=== PATIENT | male | born 1940 | race Caucasian/White ===

== ENCOUNTER → 2017-01-23 | Outpatient (CLI) | payer MEDICARE ==
--- NOTE | 2017-01-23 19:33 | CT ---
EXAMINATION TYPE: CT lumbar spine wo con DATE OF EXAM: 01/23/2017 7:07 PM COMPARISON: NONE HISTORY: Lower back pain, hx of fusion. CT DLP: 2454.5 mGycm Automated exposure control for dose reduction was used. Unenhanced CT of the lumbar spine was performed. Bone and soft tissue window settings are submitted as well as coronal and sagittal reconstructions. The lumbar vertebra have normal alignment. There is slight loss of height of the lumbar vertebral bod ies of 5-10%. There is osteosclerosis from L2 to L5. There is disc prosthesis at L4-5. There is narro wing of disc spaces throughout the lumbar spine. There is posterior rods and screws fusing L4 and L5 vertebral bodies. Abdominal aorta is atheromatous. There is no lumbar paraspinal mass. There is left- sided L4 laminectomy. There is mild relative spinal stenosis at L2-3. There is mild relative spinal s tenosis at L3-4. There is metal artifact in the spinal canal is not well evaluated at L4-5. The sacro iliac joints appear intact. I see no focal bone destruction. IMPRESSION: Previous surgery. Atherosclerotic vascular disease. Spondylotic changes mainly from L2 to S1. Posterior fusion surgery. Mild relative spinal stenosis is present at L2-3 and L3-4. No definite acute fracture seen. There is some relative lucency on the left side of the L3 vertebral body that is probably related to degenerative phenomenon. There is noted fu siform aneurysm of the abdominal aorta that measures up to 3.6 cm.
== END | disposition home or self-care (01) ==
LOC: RADCTMAIN 18:52
PROVIDERS: ATTEND Internal Medicine
DX: M48.06 Spinal stenosis, lumbar region (principal); M47.27 Other spondylosis with radiculopathy, lumbosacral region; Z98.1 Arthrodesis status
CPT/HCPCS: 72131

== ENCOUNTER → 2017-09-09 | Outpatient (CLI) | payer MEDICARE ==
--- NOTE | 2017-09-09 10:20 | FL ---
EXAMINATION TYPE: FL sniff test without CXR DATE OF EXAM: 09/09/2017 COMPARISON: NONE HISTORY: Diaphragmatic paralysis TECHNIQUE: Fluoroscopy. FINDINGS: There is normal paradoxical movement upon inspiration and respiration bilaterally however t here is reduced movement of the left hemidiaphragm. IMPRESSION: As Above.
== END | disposition home or self-care (01) ==
LOC: RADFLMAIN 09:56
PROVIDERS: ATTEND Internal Medicine
DX: J98.6 Disorders of diaphragm (principal)
CPT/HCPCS: 76000

== ENCOUNTER 2018-04-08 10:00 | Emergency (ER) | payer MEDICARE ==
[2018-04-08] MEDS ORDERED: NITROGLYCERIN SL TABS 0.4 MG TAB SUBLINGUAL STA ×2 (10:15→12:08)
[2018-04-08] MEDS ORDERED: fentaNYL (PF) 50 MCG/ML 2 ML AMP IV STA ×2 (10:16→12:42)
--- NOTE | 2018-04-08 10:21 | ED ---
Chest Pain HPI - General Chief Complaint: Chest Pain Stated Complaint: Chest pain Time Seen by Provider: 04/08/18 10:08 Source: patient, family, RN notes reviewed Mode of arrival: wheelchair Limitations: no limitations - History of Present Illness Initial Comments: This is a 78-year-old male with a history of chronic atrial fibrillation heart disease who presents with complaints of sharp and tight chest pain it radiates to his back. He points to his lower chest and epigastric area. He states this started about 1 hour prior to admission with some nausea. He states is 8/10 severity. He denies any fevers chills sweats shortness of breath. No focal weakness. He does state that he is scheduled to have a herniorrhaphy done this month. He is not believe this is part of anything is having today. MD Complaint: chest pain - Related Data Home Medications Medication Instructions Recorded Confirmed Allopurinol 300 mg PO HS 04/05/14 04/08/18 Atorvastatin [Lipitor] 40 mg PO HS 04/05/14 04/08/18 Carvedilol [Coreg] 25 mg PO AC-BID 04/05/14 04/08/18 Clopidogrel [Plavix] 75 mg PO DAILY 04/05/14 04/08/18 Colchicine [Colcrys] 1 tab PO DIRECTED PRN 04/05/14 04/08/18 Doxazosin [Cardura] 2 tab PO HS 04/05/14 04/08/18 Furosemide [Lasix] 20 mg PO MOWEFR 04/05/14 04/08/18 Magnesium Oxide 400 mg PO BID-W/MEALS 04/05/14 04/08/18 clonazePAM [KlonoPIN] 1 mg PO 04/05/14 04/08/18 Warfarin [Coumadin] 7.5 mg PO SUMOWEFRSA 04/28/14 04/08/18 Albuterol Sulfate [Proair Hfa] 1 - 2 puff INHALATION RT-Q6H PRN 04/08/18 Losartan Potassium 50 mg PO HS 04/08/18 04/08/18 Warfarin [Coumadin] 5 mg PO TUTH 04/08/18 04/08/18 Allergies Allergy/AdvReac Type Severity Reaction Status Date / Time No Known Allergies Allergy Verified 04/08/18 11:32 Review of Systems ROS Statement: Those systems with pertinent positive or pertinent negative responses have been documented in the HPI. ROS Other: All systems not noted in ROS Statement are negative. EKG Findings - EKG Results: EKG: interpreted by [facility] (DL comparison at this time is one dated 03/02/08 which at that time demonstrated no pacer.) Past Medical History Past Medical History: Cancer, GERD/Reflux, Hyperlipidemia, Hypertension, Myocardial Infarction ([place]), Skin Disorder, Sleep Apnea/CPAP/BIPAP Additional Past Medical History / Comment(s): Skin CA 2014 removal, Last Myocardial Infarction Date:: History of Any Multi-Drug Resistant Organisms: MRSA Date of last positivie culture/infection: 2000 MDRO Source:: Right elbow Past Surgical History: Cardiac Ablation, Heart Catheterization With Stent Past Anesthesia/Blood Transfusion Reactions: No Reported Reaction Date of Last Stent Placement:: 2005 Type of Cardiac Device: Permanent Pacemaker Device Placement Date:: march 2008 Past Psychological History: No Psychological Hx Reported Smoking Status: Never smoker Past Alcohol Use History: None Reported Past Drug Use History: None Reported General Exam - General Exam Comments Initial Comments: This a well-developed well-nourished awake alert oriented 3 male Limitations: no limitations General appearance: alert, anxious Head exam: Present: atraumatic, normocephalic, normal inspection Eye exam: Present: normal appearance, PERRL, EOMI. Absent: scleral icterus, conjunctival injection, periorbital swelling ENT exam: Present: normal exam, mucous membranes moist Neck exam: Present: normal inspection. Absent: tenderness, meningismus, lymphadenopathy Respiratory exam: Present: normal lung sounds bilaterally, chest wall tenderness (Tenderness palpation on the posterior chest wall the mid paraspinous muscles no spinous process tenderness. No step-off or crepitation) . Absent: respiratory distress, wheezes, rales, rhonchi, stridor Cardiovascular Exam: Present: regular rate, normal rhythm, normal heart sounds. Absent: systolic murmur, diastolic murmur, rubs, gallop, clicks GI/Abdominal exam: Present: soft, tenderness (Mild tenderness palpation of the epigastrium), normal bowel sounds. Absent: distended, guarding, rebound, rigid , bruit, pulsatile mass Extremities exam: Present: normal inspection, full ROM, normal capillary refill. Absent: tenderness, pedal edema, joint swelling, calf tenderness Back exam: Present: normal inspection Neurological exam: Present: alert, oriented X3, CN II-XII intact Psychiatric exam: Present: normal affect, normal mood Skin exam: Present: warm, dry, intact, normal color. Absent: rash Course Vital Signs 04/08/18 04/08/18 04/08/18 10:04 10:25 10:33 Temperature 97.4 F L Pulse Rate 65 64 Pulse Rate [ 72 [employer] ] Respiratory 20 20 Rate Blood Pressure 136/69 155/70 O2 Sat by Pulse 93 L 97 Oximetry 04/08/18 04/08/18 04/08/18 10:39 10:46 10:50 Temperature Pulse Rate 61 64 62 Pulse Rate [ [employer] ] Respiratory 22 20 16 Rate Blood Pressure 151/72 112/59 98/52 O2 Sat by Pulse 97 94 L 93 L Oximetry 04/08/18 04/08/18 12:08 13:01 Temperature 97.1 F L Pulse Rate 75 64 Pulse Rate [ [employer] ] Respiratory 18 18 Rate Blood Pressure 160/94 160/83 O2 Sat by Pulse 99 99 Oximetry - Reevaluation(s) Reevaluation #1: 04/08/18 13:35 Patient initially get some relief from pain but is unclear whether was nitroglycerin or fentanyl helped pain but did recur shortly thereafter. Reevaluation #2: 04/08/18 13:36 I did discuss the x-ray findings and CAT scan findings with the patient and his . Reevaluation #3: 04/08/18 13:36 I did discuss case with Dr. Dong at [facility] in [place] he is agreed to accept the patient in transfer they will send a helicopter to retrieve the patient. Chest Pain MDM - MDM I did review the imaging and report discuss the case with the radiologist. There is evidence of a dissecting aorta type a extending from the aortic root to the upper abdominal aorta it terminates at the level of the celiac axis and superior mesenteric artery. Please see the complete report the patient will be transferred by helicopter to [facility]. Patient is on Coumadin he will be given IV vitamin K. Critical Care Time Critical Care Time: Yes Critical Care Time: 39 minutes of critical care time which includes initial presentation with history physical labs x-rays multiple reevaluation the patient. Discussion with the receiving facility and physician. Discussed with the patient and his regarding the findings discussed with the helicopter crew and documentation of the above. I also did discuss the case with Dr. Infante. Disposition Clinical Impression: Aortic dissection, Atypical chest pain Disposition: OTHER INSTITUTION NOT DEFINED Condition: Serious Is patient prescribed a controlled substance at d/c from ED?: No Referrals: Mu Infante MD [Primary Care Provider] - 1-2 days - Out of Hospital Transfer - Req. Specs Out of Hospital Transfer - Requested Specifics: Intensive Care Unit
[2018-04-08 10:42] LABS: Basophils % (A) 0 %; Eosinophils # (A) 0.2 k/uL (0-0.7); Eosinophils % (A) 3 %; HCT 37.5 % (39.0-53.0); HGB 12.3 gm/dL (13.0-17.5); Lymphocytes # (A) 0.7 k/uL (1.0-4.8); Lymphocytes % (A) 11 %; MCH 31.3 pg (25.0-35.0); MCHC 32.7 g/dL (31.0-37.0); MCV 95.7 fL (80.0-100.0); Mean Platelet Volume 7.1; Monocytes # (A) 0.5 k/uL (0-1.0); Monocytes % (A) 7 %; Neutrophils # (A) 5.2 k/uL (1.3-7.7); Neutrophils % (A) 77 %; Platelet Count 123 k/uL (150-450); RBC 3.92 m/uL (4.30-5.90); RDW 15.7 % (11.5-15.5); WBC 6.8 k/uL (3.8-10.6)
[2018-04-08 10:47] LABS: Albumin 3.6 g/dL (3.5-5.0); Calcium 8.9 mg/dL (8.4-10.2); Magnesium 1.4 mg/dL (1.6-2.3); Potassium 4.7 mmol/L (3.5-5.1); Total Protein 6.1 g/dL (6.3-8.2)
[2018-04-08] MEDS ORDERED: SODIUM CHLORIDE 0.9% 500 ML IV ONE (10:52)
[2018-04-08 10:59] LABS: INR 2.3 (<1.2); Prothrombin Time 20.6 sec (9.0-12.0)
[2018-04-08 11:01] LABS: Creatine Kinase 45 U/L (55-170)
[2018-04-08 11:11] LABS: D-Dimer 1.27 mg/L FEU (<0.60)
[2018-04-08 11:14] LABS: Troponin I <0.012 ng/mL (0.000-0.034)
--- NOTE | 2018-04-08 11:40 | XR ---
EXAMINATION TYPE: XR chest 2V DATE OF EXAM: 04/08/2018 COMPARISON: 01/07/2015 HISTORY: 78-year-old male with chest pain TECHNIQUE: Frontal and lateral views FINDINGS: Heart mildly enlarged. Ectatic appearing aortic arch has a similar appearance to 2015. Patchy bibasil ar opacities. Mild diffuse interstitial prominence is increased. Low lung volumes. Left anterior ches t wall pacemaker generator with right atrial and right ventricular leads. Trace effusions difficult t o exclude. IMPRESSION: 1. Increased interstitial prominence could be secondary to hypoventilatory changes or pulmonary vascu lar congestion. 2. Patchy bibasilar areas of atelectasis and/or infiltrates. 3. Similar ectatic appearance to the aortic arch.
[2018-04-08] MEDS ORDERED: ONDANSETRON 4 MG/2 ML VIAL IVP STA (11:52)
[2018-04-08 12:15] VITALS: RESP 18
[2018-04-08] MEDS ORDERED: MAGNESIUM SULFATE-D5W PMX 1 GM in DEXTROSE/WATER 1 100ML.BAG IVPB ONE (12:22)
--- NOTE | 2018-04-08 12:50 | CT ---
EXAMINATION TYPE: CT angio thor/abd pel aorta DATE OF EXAM: 04/08/2018 COMPARISON: Radiograph chest same day HISTORY: 78-year-old male pain TECHNIQUE: Contiguous axial scanning of the chest, abdomen, and pelvis performed without and with IV Contrast, patient injected with 100 mL of Isovue 370. Coronal/sagittal MIP reconstructions performed. 3-D reconstructions generated on a dedicated independent workstation. CT DLP: 2793.6 mGycm Automated exposure control for dose reduction was used. FINDINGS: Chest: Heart borderline enlarged without pericardial effusion. Coronary vessel calcifications are present. Large caliber to the main right and left pulmonary arteries at 3.8 and 3.5 cm, respectively, suggesti ng underlying pulmonary artery hypertension. No thoracic lymphadenopathy by CT size criteria. Mild diffuse bronchial wall thickening and strandy scarring or atelectasis at the lower lungs. Minima l scattered emphysematous changes present. ABDOMEN: Suspect a hemangioma with peripheral nodular arterial enhancement measuring 2.1 cm in the right liver lobe. Layering gravel or sludge in the gallbladder. No abnormal gallbladder distention. Adrenal glan ds, spleen, and pancreas show no gross abnormal body. Lobulated renal contours. There is an exophytic 3.0 cm hypodense lesion lateral left kidney likely a cyst. No dilated small bowel, free fluid, or free air. Normal appendix. Scattered mild stool. No pericoloni c inflammatory change. Scattered nonenlarged retroperitoneal lymph nodes. Pelvis: Indirect left inguinal hernia containing a loop of proximal sigmoid colon. No obstructive changes. Bl adder nondistended. Central prosthetic calcifications. No abnormal fluid collection of pelvis or pelv ic lymphadenopathy. Vasculature: There is a type A aortic dissection extending from the aortic root extending down to the upper abdomi nal aorta. The dissection terminates between the level of the celiac axis and SMA. The false lumen is very large with equivalent opacification of the true lumen. The true lumen is gregory edly narrowed at the aortic root by both coronary vessels arise from the true lumen. Aortic root is d ilated at 4.7 cm. Mid ascending aorta is dilated at 5.4 cm. Distal arch is dilated at 5.1 cm. Dissection extends up to the mid brachiocephalic artery. The left common carotid and left subclavian artery arise from the true lumen. The true lumen assumes a left lateral position along the descending thoracic aorta and is markedly co llapsed at the mid thorax, axial image 59. Mid descending thoracic aorta dilated at 3.8 cm. Lower descending thoracic aorta dilated at 3.5 cm. In the upper abdomen, the true lumen assumes a right lateral position. The celiac axis and SMA both arise from the true lumen. Accessory right renal artery to the upper pole. Mild to moderate arthroscopic calcifications throughout the abdominal aorta and iliac arteries. Aneur ysm of the right common iliac artery at 2.0 cm. Bones: Right hip total arthroplasty. There is cortical and trabecular thickening involving the right hemipel vis with expansile appearance suggestive of Paget's disease. There is AVN at the left hip with early subchondral collapse. Multilevel degenerative changes throughout the spine. L4-L5 posterior fusion hardware. IMPRESSION: 1. TYPE A DISSECTING ANEURYSM. The dissection begins at the aortic root (both coronary cusps are supp lied by the true lumen) and extends down to just below the celiac axis. 2. Large communication into the false lumen with dynamic collapsibility of the true lumen. The true l umen becomes very narrowed at the aortic root, ascending aorta, and mid descending thoracic aorta. 3. Dissection extends into the proximal brachiocephalic artery which remains patent. The remaining ar ch vessels are supplied by the true lumen. 4. The celiac axis and other visceral arteries of the abdomen are also supplied by the true lumen. 5. Aneurysmal thoracic aorta (aortic root 4.7 cm, mid ascending aorta 5.4 cm, distal arch 5.1 cm, and descending thoracic aorta 3.8 cm). Additional 2.0 cm aneurysm of the right common iliac artery. 6. 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 Critical findings called to Dr. Mak in the ER at 12:45 PM.
[2018-04-08 13:05] VITALS: TEMP 97.1
[2018-04-08] MEDS ORDERED: PHYTONADIONE 10 MG in SODIUM CHLORIDE 0.9% 50 ML IVPB STA (13:24)
[2018-04-08] MEDS ORDERED: LABETALOL 5 MG/ML VIAL MDV IVP STA (14:02)
[2018-04-08 14:35] VITALS: BP 166/86; PULSE 62
== END 2018-04-08 14:11 | disposition other institution (70) ==
LOC: EC 10:00
DX: I71.01 Dissection of thoracic aorta (principal); K21.9 Gastro-esophageal reflux disease without esophagitis; E78.5 Hyperlipidemia, unspecified; I10 Essential (primary) hypertension; I25.2 Old myocardial infarction; G47.30 Sleep apnea, unspecified; Z79.02 Long term (current) use of antithrombotics/antiplatelets; Z79.01 Long term (current) use of anticoagulants; Z79.899 Other long term (current) drug therapy; Z85.828 Personal history of other malignant neoplasm of skin; Z86.14 Personal history of Methicillin resistant Staphylococcus aureus infection; Z95.0 Presence of cardiac pacemaker; Z95.5 Presence of coronary angioplasty implant and graft
CPT/HCPCS: 36415; 93005; 85379; 83880; 80053; 82150; 82550; 82553; 83690; 83735; 84484; 85025; 85610; 85730; 71046; 71275; 74174; 99291; 96365 ×2; 96375 ×3; 96376; 96361; J3430; J2405; J3010; J3475; Q9967

== ENCOUNTER 2018-05-24 03:59 | Inpatient (IN) | payer MEDICARE ==
[2018-05-24] MEDS ORDERED: SODIUM CHLORIDE 0.9% 1,000 ML IV ONE (04:32)
[2018-05-24] MEDS ORDERED: ONDANSETRON 4 MG/2 ML VIAL IVP STA ×2 (04:32→05:15)
--- NOTE | 2018-05-24 04:42 | ED ---
Abdominal Pain HPI - General Chief Complaint: Recheck/Abnormal Lab/Rx Stated Complaint: Chest Pain/Vomiting/Dizziness Time Seen by Provider: 05/24/18 04:20 Source: patient, family Mode of arrival: ambulatory - History of Present Illness MD Complaint: abdominal pain Onset/Timin -: hour(s) Location: diffuse Radiation: none Migration to: no migration Severity: severe Quality: dull Consistency: constant Improves With: nothing Worsens With: nothing Associated Symptoms: nausea, vomiting - Related Data Home Medications Medication Instructions Recorded Confirmed Allopurinol 300 mg PO HS 04/05/14 04/08/18 Atorvastatin [Lipitor] 40 mg PO HS 04/05/14 04/08/18 Carvedilol [Coreg] 25 mg PO AC-BID 04/05/14 04/08/18 Clopidogrel [Plavix] 75 mg PO DAILY 04/05/14 04/08/18 Colchicine [Colcrys] 1 tab PO DIRECTED PRN 04/05/14 04/08/18 Doxazosin [Cardura] 2 tab PO HS 04/05/14 04/08/18 Furosemide [Lasix] 20 mg PO MOWEFR 04/05/14 04/08/18 Magnesium Oxide 400 mg PO BID-W/MEALS 04/05/14 04/08/18 clonazePAM [KlonoPIN] 1 mg PO HS 04/05/14 04/08/18 Warfarin [Coumadin] 7.5 mg PO SUMOWEFRSA 04/28/14 04/08/18 Albuterol Sulfate [Proair Hfa] 1 - 2 puff INHALATION RT-Q6H PRN 04/08/18 Losartan Potassium 50 mg PO 04/08/18 04/08/18 Warfarin [Coumadin] 5 mg PO TUTH 04/08/18 04/08/18 Allergies Allergy/AdvReac Type Severity Reaction Status Date / Time No Known Allergies Allergy Verified 05/24/18 04:09 Review of Systems ROS Statement: Those systems with pertinent positive or pertinent negative responses have been documented in the HPI. ROS Other: All systems not noted in ROS Statement are negative. Constitutional: Denies: fever, chills Respiratory: Denies: cough, dyspnea Cardiovascular: Denies: chest pain, palpitations, orthopnea, edema Gastrointestinal: Reports: abdominal pain, nausea, vomiting. Denies: diarrhea, constipation, hematemesis, melena, hematochezia Genitourinary: Denies: dysuria, hematuria Musculoskeletal: Denies: back pain Skin: Denies: rash Neurological: Denies: headache, weakness, numbness Psychiatric: Reports: anxiety Hematological/Lymphatic: Denies: easy bleeding Past Medical History Past Medical History: Cancer, GERD/Reflux, Hyperlipidemia, Hypertension, Myocardial Infarction ([place]), Skin Disorder, Sleep Apnea/CPAP/BIPAP Additional Past Medical History / Comment(s): Skin CA 2014 removal, Last Myocardial Infarction Date:: History of Any Multi-Drug Resistant Organisms: MRSA Date of last positivie culture/infection: 2000 MDRO Source:: Right elbow Past Surgical History: Cardiac Ablation, Heart Catheterization With Stent Additional Past Surgical History / Comment(s): aortic dissection Past Anesthesia/Blood Transfusion Reactions: No Reported Reaction Date of Last Stent Placement:: 2005 Type of Cardiac Device: Permanent Pacemaker Device Placement Date:: march 2008 Past Psychological History: No Psychological Hx Reported Smoking Status: Never smoker Past Alcohol Use History: None Reported Past Drug Use History: None Reported General Exam General appearance: alert, in distress Head exam: Present: atraumatic, normocephalic Eye exam: Present: normal appearance. Absent: scleral icterus, conjunctival injection ENT exam: Present: mucous membranes dry Respiratory exam: Present: normal lung sounds bilaterally. Absent: respiratory distress, wheezes, rales, rhonchi, stridor Cardiovascular Exam: Present: normal rhythm, irregular rhythm, normal heart sounds. Absent: systolic murmur, diastolic murmur, rubs, gallop GI/Abdominal exam: Present: soft. Absent: distended, tenderness, guarding, rebound, rigid, mass, pulsatile mass, hernia Extremities exam: Present: normal inspection, normal capillary refill. Absent: pedal edema, calf tenderness Back exam: Present: normal inspection Neurological exam: Present: alert Skin exam: Present: warm, dry, intact, normal color. Absent: rash Course Vital Signs 05/24/18 04:04 Temperature 97.6 F Pulse Rate 85 Respiratory 18 Rate Blood Pressure 99/61 O2 Sat by Pulse 97 Oximetry Medical Decision Making - Lab Data Result diagrams: 05/24/18 04:16 05/24/18 04:16 Lab Results 05/24/18 05/24/18 05/24/18 Range/Units 04:16 04:16 04:16 WBC 7.1 (3.8-10.6) k/uL RBC 2.96 L (4.30-5.90) m/uL Hgb 9.0 L (13.0-17.5) gm/dL Hct 28.5 L (39.0-53.0) % MCV 96.2 (80.0-100.0) fL MCH 30.5 (25.0-35.0) pg MCHC 31.7 (31.0-37.0) g/dL RDW 19.1 H (11.5-15.5) % Plt Count 146 L (150-450) k/uL Neutrophils % 72 % Lymphocytes % 11 % Monocytes % 9 % Eosinophils % 5 % Basophils % 1 % Neutrophils # 5.1 (1.3-7.7) k/uL Lymphocytes # 0.8 L (1.0-4.8) k/uL Monocytes # 0.7 (0-1.0) k/uL Eosinophils # 0.4 (0-0.7) k/uL Basophils # 0.0 (0-0.2) k/uL Hypochromasia Marked Poikilocytosis Slight Anisocytosis Slight Macrocytosis Slight PT (9.0-12.0) sec INR (<1.2) APTT (22.0-30.0) sec Sodium 134 L (137-145) mmol/L Potassium 4.3 (3.5-5.1) mmol/L Chloride 103 (98-107) mmol/L Carbon Dioxide 24 (22-30) mmol/L Anion Gap 7 mmol/L BUN 18 (9-20) mg/dL Creatinine 0.90 (0.66-1.25) mg/dL Est GFR (CKD-EPI)AfAm >90 (>60 ml/min/1.73 sqM) Est GFR (CKD-EPI)NonAf 81 (>60 ml/min/1.73 sqM) Glucose 137 H (74-99) mg/dL Plasma Lactic Acid Kasi 1.4 (0.7-2.0) mmol/L Calcium 8.2 L (8.4-10.2) mg/dL Total Bilirubin 0.9 (0.2-1.3) mg/dL AST 26 (17-59) U/L ALT 52 (21-72) U/L Alkaline Phosphatase 124 (38-126) U/L Troponin I (0.000-0.034) ng/mL Total Protein 5.7 L (6.3-8.2) g/dL Albumin 2.8 L (3.5-5.0) g/dL Amylase 53 (30-110) U/L Lipase 192 (23-300) U/L Blood Type Blood Type Recheck Antibody Screen Spec Expiration Date 05/24/18 05/24/18 05/24/18 Range/Units 04:16 04:16 04:16 WBC (3.8-10.6) k/uL RBC (4.30-5.90) m/uL Hgb (13.0-17.5) gm/dL Hct (39.0-53.0) % MCV (80.0-100.0) fL MCH (25.0-35.0) pg MCHC (31.0-37.0) g/dL RDW (11.5-15.5) % Plt Count (150-450) k/uL Neutrophils % % Lymphocytes % % Monocytes % % Eosinophils % % Basophils % % Neutrophils # (1.3-7.7) k/uL Lymphocytes # (1.0-4.8) k/uL Monocytes # (0-1.0) k/uL Eosinophils # (0-0.7) k/uL Basophils # (0-0.2) k/uL Hypochromasia Poikilocytosis Anisocytosis Macrocytosis PT 11.2 (9.0-12.0) sec INR 1.2 H (<1.2) APTT 27.3 (22.0-30.0) sec Sodium (137-145) mmol/L Potassium (3.5-5.1) mmol/L Chloride (98-107) mmol/L Carbon Dioxide (22-30) mmol/L Anion Gap mmol/L BUN (9-20) mg/dL Creatinine (0.66-1.25) mg/dL Est GFR (CKD-EPI)AfAm (>60 ml/min/1.73 sqM) Est GFR (CKD-EPI)NonAf (>60 ml/min/1.73 sqM) Glucose (74-99) mg/dL Plasma Lactic Acid Kasi (0.7-2.0) mmol/L Calcium (8.4-10.2) mg/dL Total Bilirubin (0.2-1.3) mg/dL AST (17-59) U/L ALT (21-72) U/L Alkaline Phosphatase (38-126) U/L Troponin I <0.012 (0.000-0.034) ng/mL Total Protein (6.3-8.2) g/dL Albumin (3.5-5.0) g/dL Amylase (30-110) U/L Lipase (23-300) U/L Blood Type O Positive Blood Type Recheck No Antibody Screen NEGATIVE Spec Expiration Date 05/27/2018 - 1408 - EKG Data -: EKG Interpreted by [facility] EKG shows normal: axis (Normal), intervals (QRS duration prolonged at 150 ms, consistent with the right bundle branch block. QTC 519 ms, normal.), QRS complexes (Right bundle-branch block.), ST-T waves (Normal) Rate: normal (Rate approximately 86 bpm) Interpretation: other (Atrial fibrillation) Disposition Clinical Impression: Epigastric pain Disposition: ADMITTED IP TO THIS HOSP Condition: Fair Instructions: Abdominal Pain (ED) Is patient prescribed a controlled substance at d/c from ED?: No Referrals: Mu Infante MD [Primary Care Provider] - 1-2 days
[2018-05-24 04:46] LABS: Anisocytosis Slight; Basophils % (A) 1 %; Eosinophils # (A) 0.4 k/uL (0-0.7); Eosinophils % (A) 5 %; HCT 28.5 % (39.0-53.0); Hypochromasia Marked; Lymphocytes # (A) 0.8 k/uL (1.0-4.8); Lymphocytes % (A) 11 %; MCH 30.5 pg (25.0-35.0); MCHC 31.7 g/dL (31.0-37.0); MCV 96.2 fL (80.0-100.0); Macrocytosis Slight; Mean Platelet Volume 7.7; Monocytes # (A) 0.7 k/uL (0-1.0); Monocytes % (A) 9 %; Neutrophils # (A) 5.1 k/uL (1.3-7.7); Neutrophils % (A) 72 %; Platelet Count 146 k/uL (150-450); Poikilocytosis Slight; RBC 2.96 m/uL (4.30-5.90); RDW 19.1 % (11.5-15.5); WBC 7.1 k/uL (3.8-10.6)
[2018-05-24 04:58] LABS: INR 1.2 (<1.2); Partial Thromboplastin Time 27.3 sec (22.0-30.0); Prothrombin Time 11.2 sec (9.0-12.0)
[2018-05-24 05:00] LABS: ALT 52 U/L (21-72); AST 26 U/L (17-59); Albumin 2.8 g/dL (3.5-5.0); Alkaline Phosphatase 124 U/L (38-126); Amylase 53 U/L (30-110); Anion Gap 7 mmol/L; Blood Urea Nitrogen 18 mg/dL (9-20); Calcium 8.2 mg/dL (8.4-10.2); Carbon Dioxide 24 mmol/L (22-30); Chloride 103 mmol/L (98-107); Glucose 137 mg/dL (74-99); Lipase 192 U/L (23-300); Potassium 4.3 mmol/L (3.5-5.1); Sodium 134 mmol/L (137-145); Total Bilirubin 0.9 mg/dL (0.2-1.3); Total Protein 5.7 g/dL (6.3-8.2)
[2018-05-24] MEDS ORDERED: LORazepam 2 MG/ML INJ IV STA (05:15)
--- NOTE | 2018-05-24 05:22 | CT ---
EXAMINATION TYPE: CT angio thor/abd pel aorta DATE OF EXAM: 05/24/2018 COMPARISON: 04/08/2018 HISTORY: R/O AAA CT DLP: 2169.60 mGycm. Automated Exposure Control for Dose Reduction was Utilized. CONTRAST: CT scan of the thorax, abdomen and pelvis is performed with IV Contrast, patient injected with 100 mL of Isovue 370. FINDINGS: There are 3-D post processed images. There is thoracic aortic aneurysm that measures up to 4.5 cm. There is dissection of the descending t horacic aorta that extends from the aortic arch to the upper abdominal aorta above the superior mesen teric artery and celiac artery. There is no aneurysm of the mid and lower abdominal aorta. There is n o evidence of dissection of the mid and lower abdominal aorta. There is patency of the internal and e xternal and common iliac arteries. There is bilateral arterial flow in the renal arteries. There is p atency of the celiac artery and superior mesenteric artery. There is hypodensity in the false lumen o f the descending thoracic aorta dissection. The false lumen is up to 50% of the lumen diameter. There is no evidence of aortic stenosis. There is right pleural effusion. Heart is enlarged. There are sma ll calcified gallstones. IMPRESSION: There is aortic dissection involving the entire descending thoracic aorta down to the celiac artery. The false lumen has decreased in size compared to last exam. There is no evidence of any new aortic d issection. Dissection at the top of the aortic arch on Old exam extending into the innominate artery is not demonstrated on this exam. Size of the aneurysm has not changed. There is new right pleural effusion compared to old exam. There is cardiomegaly. There is no evidence of pulmonary embolism.
[2018-05-24] MEDS ORDERED: DICYCLOMINE 10 MG/ML 2 ML AMP IM STA (05:37)
[2018-05-24 05:41] LABS: Troponin I <0.012 ng/mL (0.000-0.034)
[2018-05-24] MEDS ORDERED: NITROGLYCERIN SL TABS 0.4 MG TAB SUBLINGUAL PRN (06:40)
[2018-05-24] MEDS ORDERED: ALBUTEROL NEBULIZED 2.5 MG/3 ML INHALATION PRN (06:42)
[2018-05-24 07:20] LABS: Creatine Kinase 24 U/L (55-170)
[2018-05-24 07:30] LABS: Creatine Kinase MB 1.5 ng/mL (0.0-2.4)
[2018-05-24] MEDS ORDERED: CARVEDILOL 12.5 MG TAB PO SCH (07:30)
--- NOTE | 2018-05-24 08:02 | US ---
EXAMINATION TYPE: US abdomen limited DATE OF EXAM: 05/24/2018 COMPARISON: NONE CLINICAL HISTORY: Pain. EXAM MEASUREMENTS: Liver Length: 18.5 cm Gallbladder Wall: 0.5 cm CBD: 0.6 cm Right Kidney: 10.8 x 5.3 x 5.6 cm Severely limited due to pt unable to hold breath well, SOB, and overlying bowel gas. Pancreas: Tail obscured by overlying bowel gas Liver: Increased attenuation, decreased visualization of vessels suggestive of fatty infiltrate Gallbladder: Borderline hydropic gallbladder with irregular thickened [place] and sludge noted within. Evidence for sonographic Whittaker's sign: No, pt sleeping intermittently throughout exam, no guardin g noted CBD: wnl Right Kidney: 2 hypoechoic areas noted about midpole, likely cysts (1.58 x 1.8 x 1.5 cm) (1.4 x 1.0 x 1.4 cm) Limited views of the pancreas are unremarkable. The liver is mildly prominent measuring 19 cm. There is no evidence of biliary dilatation. There is sludge within the gallbladder. Gallbladder wall is thickened measuring 5 mm. There is no son ographic Whittaker's sign. The distal common hepatic duct measures 6 mm. There are 2 hypoechoic lesions in the mid polar region of the right kidney measuring 1.8 and 1.4 cm r espectively. These do not meet the requirements of simple cysts. IMPRESSION: 1. THICK-WALLED GALLBLADDER CONTAINING SLUDGE. 2. HYPOECHOIC LESIONS IN THE RIGHT KIDNEY DO NOT MEET THE REQUIREMENTS OF SIMPLE CYSTS. 3. MILD HEPATOMEGALY.
[2018-05-24 08:54] VITALS: BMI 32.5
[2018-05-24] MEDS ORDERED: CLOPIDOGREL 75 MG TAB PO SCH (09:00)
[2018-05-24] MEDS: MAGNESIUM OXIDE 400 MG TAB PO SCH ×2 (09:41→17:26)
[2018-05-24 11:33] LABS: Creatine Kinase 23 U/L (55-170)
[2018-05-24 11:46] LABS: Creatine Kinase MB 1.6 ng/mL (0.0-2.4); Troponin I <0.012 ng/mL (0.000-0.034)
[2018-05-24] MEDS ORDERED: SENNOSIDES-DOCUSATE SODIUM 1 EACH TAB PO PRN (12:12)
[2018-05-24] MEDS ORDERED: DOCUSATE 100 MG CAP PO PRN (12:12)
[2018-05-24] MEDS: ONDANSETRON 4 MG/2 ML VIAL IVP PRN (13:22)
[2018-05-24] MEDS: PANTOPRAZOLE 40 MG/10 ML VIAL IVP SCH ×2 (13:22→20:11)
[2018-05-24] MEDS: ACETAMINOPHEN TAB 325 MG TAB PO PRN (13:22)
[2018-05-24] MEDS: SODIUM CHLORIDE 0.9% 1,000 ML IV SCH (13:23)
--- NOTE | 2018-05-24 15:59 | HP ---
HISTORY AND PHYSICAL CHIEF COMPLAINT: Nausea, vomiting. HISTORY OF PRESENT ILLNESS: This 78-year-old gentleman presents to the emergency room because of persistent nausea, vomiting, and some abdominal pain. The patient in the emergency room had pointed the pain in the epigastric area. At my time of evaluation, he complains of pain in the chest area as well in the suprapubic area. He is voiding. He did have a bowel movement since admission to the hospital. The patient was discharged from [facility] after a 45 day stay 2 days ago. The patient was admitted to [facility] for ascending aorta dissection, which was diagnosed here and transferred to that facility. The patient underwent surgery. Postoperatively, he was doing well until he subsequently had again an episode of severe abdominal pain and distention. They did a laparoscopic evaluation and noticed that he had no significant obstructions or blockage. The patient apparently had suggestion of significant constipation. The patient, as mentioned above, has been subsequent with that doing well. He had been eating well. Had no nausea, vomiting. But since yesterday he says he came home in the afternoon he had had some hard candy and after that he started getting this significant epigastric discomfort, nausea, vomiting. No fever or chills. The patient denied any chest pain to suggest angina. Previous history significant for the patient having chronic atrial fibrillation with ventricular tachycardia and has an AICD. The patient's dissection was on . The patient's dissection at the time had been from the entire descending aorta down to the celiac artery. At that time, there was patency of the celiac artery and the superior mesenteric artery. That has been during last hospital stay did not demonstrate any ischemic colitis or ischemic bowel. The patient's ultrasound done at the hospital yesterday did reveal a thick-walled gallbladder containing sludge. Clinically, the patient is mildly tender there. The patient has a left inguinal hernia, but not tender. PAST MEDICAL HISTORY: Otherwise significant for chronic atrial fibrillation, hypertension, Paget's disease, thoracic aortic aneurysm as mentioned above, BPH, no known malignancy. PAST SURGICAL HISTORY: Significant for the present thoracic aortic surgery, right total hip arthroplasty, hemorrhoid surgeries, pacemaker placement. PERSONAL HISTORY: Never smoker. Alcohol occasional, which he has not had for a couple of months. ALLERGIES: None known. MEDICATIONS: Medications at present include: 1. Klonopin 1 mg at bedtime. 2. Coumadin 7.5 mg Tuesdays and , 5 mg 5 days a week. 3. Senna 2 daily. 4. Metoprolol 25 b.i.d. 5. Magnesium oxide 400 daily. 6. Lasix 20 mg 3 days a week. 7. Cardura 2 mg daily. 8. Colace 100 mg b.i.d. p.r.n. 9. Colchicine 1 tablet p.r.n. 10.Lipitor 40 mg daily. 11.Aspirin 81 mg daily. 12.Allopurinol 300 mg daily. 13.Albuterol p.r.n. 14.Tylenol. PREVIOUS VACCINATION: Pneumococcus 05/13. SOCIAL HISTORY: Patient , lives with his spouse. FAMILY MEDICAL HISTORY: One son who had committed suicide. The daughter has history of diabetes mellitus. REVIEW OF SYSTEMS: NEURO: Denies any headaches, dizziness. No double vision, blurred vision. No symptoms of TIA, syncope, seizures. PSYCH: No anxiety. CARDIAC: No chest pain, angina, palpitations. RESPIRATORY: No shortness of breath, cough, hemoptysis. GI: Present complaint of nausea, vomiting, retching, some epigastric pain. No abdominal pain, diarrhea, constipation, hematochezia, melena. Some suprapubic pain. No diarrhea or constipation. Did have a bowel movement with no melena. : No symptoms of dysuria, hematuria. EXTREMITIES: Denies pain, edema. CONSTITUTIONAL: No fever or chills. PHYSICAL EXAMINATION: A pleasant gentleman who appears pale and weak in no distress. Vital signs revealed temperature 97.8, pulse 94, respirations 16, blood pressure 123/96, pulse ox 95% on 2 L. HEENT: Normocephalic. Neck is supple. No JVD. CHEST: Clear to auscultation with mild decreased air flow at the left base. CARDIAC: Normal S1, S2 with no gallops. Irregular rhythm. Systolic murmur 2/6 left sternal border. ABDOMEN: Minimal epigastric tenderness. Bowel sounds are active. Left inguinal hernia, reducible. Extremities reveal no edema. Good pulses both upper extremities. Trace edema at the ankles. Good pulses both lower extremities. NEUROLOGIC: Awake, alert, oriented with well-coordinated movements both upper lower extremities. LABORATORY ASSESSMENT: Laboratory assessment was a CT angio done revealed decreased size and suggests aortic dissection involving the entire descending thoracic aorta down to the celiac artery. The lumen is decreased in size compared to the last exam. No evidence of any new aortic dissection. Dissection at the top of the aortic arch on the previous examination extending to innominate artery is not demonstrated on this present exam. Abdominal ultrasound does suggest some sludge in the gallbladder and the gallbladder was thickened, limited view of the pancreas was noted and multiple renal cysts, thus suggestive of borderline hydropic gallbladder. The laboratory assessment revealed the white count is normal 7.1, hemoglobin 9.0, platelets 146. INR is normal. Electrolytes are normal. Liver enzymes are normal. Bilirubin is 0.9. ASSESSMENT: 1. Acute abdominal pain with nausea, vomiting, etiology undetermined. 2. Status post recent ascending aorta dissection repair. 3. Chronic dissection thoracic aorta. 4. Anemia, post recent surgery. 5. Thrombocytopenia. 6. Anticoagulated status. 7. No evidence of any acute coronary insufficiency. PLAN: The patient at present is admitted to the hospital. We will place the patient on antiemetics, hydration, Protonix. Close monitoring. May require surgical evaluation if the patient's symptoms continue especially regarding the sludge in the gallbladder. The inguinal hernia is easily reducible. The patient's condition discussed with the patient and spouse. Prognosis guarded. MMODL / IJN: [id number] /
[2018-05-24 16:05] LABS: Creatine Kinase 22 U/L (55-170)
[2018-05-24 16:17] LABS: Creatine Kinase MB 1.7 ng/mL (0.0-2.4); Troponin I <0.012 ng/mL (0.000-0.034)
[2018-05-24 17:12] LABS: Appearance,Urine Clear (Clear); Bacteria,Urine Rare /hpf; Bilirubin,Urine Negative (Negative); Blood,Urine Negative (Negative); Color,Urine Yellow; Glucose,Urine (UA) Negative (Negative); Ketones,Urine Negative (Negative); Leukocyte Esterase,Urine Trace (Negative); Mucus,Urine Rare /hpf; Nitrite,Urine Negative (Negative); PH, Urine 5.5 (5.0-8.0); Protein,Urine Trace (Negative); RBC,Urine 1 /hpf (0-5); Specific Gravity,Urine 1.037 (1.001-1.035); Squamous Epithelial Cell,Urine <1 /hpf (0-4); Urobilinogen,Urine <2.0 mg/dL (<2.0); WBC,Urine 2 /hpf (0-5)
[2018-05-24] MEDS ORDERED: WARFARIN 7.5 MG TAB PO SCH (18:00)
[2018-05-24] MEDS ORDERED: WARFARIN 5 MG TAB PO SCH (18:00)
[2018-05-24] MEDS: HYDROmorphone 1 MG/ML 1 ML SYRINGE IVP PRN (19:12)
[2018-05-24] MEDS: ALLOPURINOL 300 MG TAB PO SCH (20:10)
[2018-05-24] MEDS: DOXAZOSIN 2 MG TAB PO SCH (20:11)
[2018-05-24] MEDS: LOSARTAN 50 MG TAB PO SCH (20:11)
[2018-05-24] MEDS: METOPROLOL SUCCINATE (ER) 25 MG TAB.ER.24H PO SCH (20:11)
[2018-05-24] MEDS: ATORVASTATIN 40 MG TAB PO SCH (20:11)
[2018-05-24 21:55] LABS: Cholesterol 106 mg/dL (<200); HDL Cholesterol 16 mg/dL (40-60); LDL Cholesterol,Calculated 64 mg/dL (0-99); Triglycerides 132 mg/dL (<150)
[2018-05-24] MEDS: clonazePAM 1 MG TAB PO SCH (22:28)
[2018-05-25] MEDS: HYDROmorphone 1 MG/ML 1 ML SYRINGE IVP PRN ×2 (00:50→06:41)
[2018-05-25] MEDS: SODIUM CHLORIDE 0.9% 1,000 ML IV SCH (06:41)
[2018-05-25] MEDS: ONDANSETRON 4 MG/2 ML VIAL IVP PRN (07:17)
[2018-05-25] MEDS ORDERED: METOPROLOL SUCCINATE (ER) 50 MG TAB.ER.24H PO STA (07:25)
[2018-05-25] MEDS: METOPROLOL SUCCINATE (ER) 25 MG TAB.ER.24H PO SCH ×2 (07:54→21:50)
[2018-05-25] MEDS: MAGNESIUM OXIDE 400 MG TAB PO SCH ×2 (07:55→21:44)
[2018-05-25] MEDS: ASPIRIN 81 MG PO SCH (07:55)
[2018-05-25] MEDS: PANTOPRAZOLE 40 MG/10 ML VIAL IVP SCH ×2 (07:55→21:51)
[2018-05-25 08:22] LABS: Anisocytosis Slight; Basophils % (A) 0 %; Eosinophils # (A) 0.1 k/uL (0-0.7); Eosinophils % (A) 0 %; HCT 31.9 % (39.0-53.0); HGB 9.6 gm/dL (13.0-17.5); Hypochromasia Marked; Lymphocytes # (A) 0.5 k/uL (1.0-4.8); Lymphocytes % (A) 2 %; MCH 28.7 pg (25.0-35.0); MCV 95.5 fL (80.0-100.0); Mean Platelet Volume 7.6; Monocytes # (A) 1.4 k/uL (0-1.0); Monocytes % (A) 6 %; Neutrophils # (A) 20.2 k/uL (1.3-7.7); Neutrophils % (A) 91 %; Platelet Count 165 k/uL (150-450); Poikilocytosis Slight; RBC 3.34 m/uL (4.30-5.90); RDW 16.3 % (11.5-15.5); WBC 22.3 k/uL (3.8-10.6)
[2018-05-25 08:28] LABS: INR 1.6 (<1.2); Prothrombin Time 14.6 sec (9.0-12.0)
--- NOTE | 2018-05-25 08:39 | XR ---
EXAMINATION TYPE: XR chest 1V portable DATE OF EXAM: 05/25/2018 HISTORY: SOB. REFERENCE: Previous study dated 04/08/2018. FINDINGS: There is a bipolar pacemaker in place on the left. There has been a previous midline sterno arvin. The heart is enlarged. There is unfolding and ectasia of the thoracic aorta. There is minimal left ba silar airspace disease. There is vascular congestion and mild increased markings. The left CP angle i s blunted and I could not exclude a small effusion. IMPRESSION: 1. CARDIOMEGALY. 2. VASCULAR PROMINENCE. 3. SUBTLE INTERSTITIAL CHANGE WHICH MAY REFLECT EDEMA. 4. LEFT BASILAR ATELECTASIS OR PNEUMONIA.
[2018-05-25 08:40] LABS: ALT 37 U/L (21-72); AST 22 U/L (17-59); Albumin 2.6 g/dL (3.5-5.0); Alkaline Phosphatase 108 U/L (38-126); Anion Gap 8 mmol/L; Blood Urea Nitrogen 18 mg/dL (9-20); Calcium 7.9 mg/dL (8.4-10.2); Carbon Dioxide 25 mmol/L (22-30); Chloride 104 mmol/L (98-107); Glucose 132 mg/dL (74-99); Magnesium 1.7 mg/dL (1.6-2.3); Potassium 5.2 mmol/L (3.5-5.1); Sodium 137 mmol/L (137-145); Total Bilirubin 1.6 mg/dL (0.2-1.3); Total Protein 5.5 g/dL (6.3-8.2)
[2018-05-25] MEDS ORDERED: ASPIRIN 325 MG TAB PO SCH (09:00)
--- NOTE | 2018-05-25 10:09 | P.CRDCN ---
History of Present Illness Consult date: 05/25/18 History of present illness: This is a 78-year-old gentleman with history of previous ischemic heart disease and myocardial infarction. Patient had a previous stent placement. Patient also has history of atrial fibrillation and the attempted ablation 3. Patient is currently in chronic atrial fibrillation. Recently patient had a descending aortic dissection. Patient spent 45 days in [facility] after repair of the aortic dissection. He came home about 2 days ago. He is now admitted to the hospital with the complaints of right-sided abdominal pain. Apparently patient was having diffuse abdominal pain while at the [facility]. Patient had a laparoscopy evaluation and apparently no significant abnormalities found. Patient is still having abdominal pain and bloating sensation with tenderness in the right upper and lower quadrants. A normal ultrasound of the abdomen showed sludge in the gallbladder. Patient is already seen by surgeon. We're asked to see the patient because of an episode of sustained ventricular tachycardia. Patient is asymptomatic. Heart rate is in the range of 1:30 to 140. His rectal Lites are within normal limits. His magnesium level is normal. I'm going to start him on IV amiodarone. Patient also seemed to be in congestive heart failure with mild JVD. Overall patient's clinical status is critical. Patient may need further abdominal procedure. Review of Systems As per HPI Past Medical History Past Medical History: Cancer, GERD/Reflux, Hyperlipidemia, Hypertension, Myocardial Infarction ([place]), Skin Disorder, Sleep Apnea/CPAP/BIPAP Additional Past Medical History / Comment(s): Skin CA 2014 removal, Last Myocardial Infarction Date:: History of Any Multi-Drug Resistant Organisms: MRSA Date of last positivie culture/infection: 2000 MDRO Source:: Right elbow Past Surgical History: Cardiac Ablation, Heart Catheterization With Stent Additional Past Surgical History / Comment(s): aortic dissection Past Anesthesia/Blood Transfusion Reactions: No Reported Reaction Date of Last Stent Placement:: 2005 Type of Cardiac Device: Permanent Pacemaker Device Placement Date:: march 2008 Past Psychological History: No Psychological Hx Reported Smoking Status: Never smoker Past Alcohol Use History: None Reported Additional Past Alcohol Use History / Comment(s): 1-2 drinks Past Drug Use History: None Reported - Past Family History Father Family Medical History: Cancer, Diabetes Mellitus, Myocardial Infarction ([place]) Medications and Allergies Home Medications Medication Instructions Recorded Confirmed Type Allopurinol 300 mg PO HS 04/05/14 05/24/18 History Atorvastatin [Lipitor] 40 mg PO HS 04/05/14 05/24/18 History Colchicine [Colcrys] 1 tab PO DIRECTED PRN 04/05/14 05/24/18 History Doxazosin [Cardura] 2 mg PO HS 04/05/14 05/24/18 History Furosemide [Lasix] 20 mg PO MOWEFR 04/05/14 05/24/18 History Magnesium Oxide 400 mg PO BID-W/MEALS 04/05/14 05/24/18 History clonazePAM [KlonoPIN] 1 mg PO HS 04/05/14 05/24/18 History Albuterol Sulfate [Proair Hfa] 1 - 2 puff INHALATION RT-Q6H PRN 04/08/18 History Warfarin [Coumadin] 5 mg PO SUMOWEFRSA 04/08/18 05/24/18 History Acetaminophen Tab [Tylenol Tab] 650 mg PO Q6H PRN 05/24/18 05/24/18 History Aspirin [Adult Low Dose Aspirin EC] 81 mg PO DAILY 05/24/18 05/24/18 History Docusate [Colace] 100 mg PO BID PRN 05/24/18 05/24/18 History Metoprolol Succinate [Toprol XL] 25 mg PO BID 05/24/18 05/24/18 History Sennosides/Docusate Sodium 2 tablet PO DAILY PRN 05/24/18 05/24/18 History [Senna-S Laxative Tablet] Warfarin [Coumadin] 7.5 mg PO TUTH 05/24/18 05/24/18 History Allergies Allergy/AdvReac Type Severity Reaction Status Date / Time No Known Allergies Allergy Verified 05/24/18 11:04 Physical Exam Vitals: Vital Signs Temp Pulse Resp BP Pulse Ox 05/25/18 05:56 98.1 F 97 20 116/54 92 L 05/24/18 20:05 98.9 F 110 H 18 146/79 93 L 05/24/18 16:00 97.8 F 102 H 16 159/88 93 L Intake and Output 05/24/18 05/25/18 05/25/18 22:59 06:59 14:59 Intake Total 225 600 150 Balance 225 600 150 Intake: Intake, IV Titration 225 600 150 Amount Sodium Chloride 0.9% 1, 225 600 150 000 ml @ 75 mls/hr IV . [id number] [facility] Rx#:[id number] Other: Voiding Method Toilet # Voids 1 GENERAL EXAM: Patient is alert and oriented and appears sick and in moderate distress HEENT: Normocephalic. NECK: Mild jugular venous distention CHEST: Postsurgical LUNGS: Seem to be clear HEART: S1 and S2 normal. irregular heart sounds ABDOMEN: Bloated with the right-sided tenderness. SKIN: No rashes CENTRAL NERVOUS SYSTEM: No focal deficits. EXTREMITIES: No cyanosis, clubbing or mild edema Results 05/25/18 08:10 05/25/18 08:10 Cardiac Enzymes 05/24/18 05/24/18 05/25/18 Range/Units 10:34 15:40 08:10 AST 22 (17-59) U/L CK-MB (CK-2) 1.6 1.7 (0.0-2.4) ng/mL Troponin I <0.012 <0.012 (0.000-0.034) ng/mL Coagulation 05/25/18 Range/Units 08:10 PT 14.6 H (9.0-12.0) sec Lipids 05/24/18 Range/Units 04:16 Triglycerides 132 (<150) mg/dL Cholesterol 106 (<200) mg/dL HDL Cholesterol 16 L (40-60) mg/dL CBC 05/25/18 Range/Units 08:10 WBC 22.3 H (3.8-10.6) k/uL RBC 3.34 L (4.30-5.90) m/uL Hgb 9.6 L (13.0-17.5) gm/dL Hct 31.9 L (39.0-53.0) % Plt Count 165 (150-450) k/uL Comprehensive Metabolic Panel 05/25/18 Range/Units 08:10 Sodium 137 (137-145) mmol/L Potassium 5.2 H (3.5-5.1) mmol/L Chloride 104 (98-107) mmol/L Carbon Dioxide 25 (22-30) mmol/L BUN 18 (9-20) mg/dL Creatinine 0.90 (0.66-1.25) mg/dL Glucose 132 H (74-99) mg/dL Calcium 7.9 L (8.4-10.2) mg/dL AST 22 (17-59) U/L ALT 37 (21-72) U/L Alkaline Phosphatase 108 (38-126) U/L Total Protein 5.5 L (6.3-8.2) g/dL Albumin 2.6 L (3.5-5.0) g/dL Current Medications Generic Name Dose Route Start Last Admin Trade Name Freq PRN Reason Stop Dose Admin Acetaminophen 650 mg 05/24/18 12:12 05/24/18 13:22 Tylenol Tab PO 650 mg Q6H PRN Administration Pain or Fever > 100.5 Albuterol Sulfate 2.5 mg 05/24/18 06:42 Ventolin Nebulized INHALATION RT-Q6H PRN Shortness Of Breath Allopurinol 300 mg 05/24/18 21:00 05/24/18 20:10 Zyloprim PO 300 mg HS EVELYNE Administration Aspirin 81 mg 05/25/18 09:00 05/25/18 07:55 Aspirin PO 81 mg DAILY EVELYNE Administration Atorvastatin Calcium 40 mg 05/24/18 21:00 05/24/18 20:11 Lipitor PO 40 mg HS EVELYNE Administration Clonazepam 1 mg 05/24/18 21:00 05/24/18 22:28 Klonopin PO Not Given HS EVELYNE Docusate Sodium 100 mg 05/24/18 12:12 Colace PO BID PRN Constipation Doxazosin Mesylate 2 mg 05/24/18 21:00 05/24/18 20:11 Cardura PO 2 mg HS EVELYNE Administration Hydromorphone HCl 0 mg 05/24/18 15:06 05/25/18 06:41 Dilaudid IVP 0.5 mg Q3HR PRN Administration Pain Sodium Chloride 1,000 mls @ 75 mls/hr 05/24/18 12:30 05/25/18 06:41 Saline 0.9% IV 75 mls/hr .[id number] EVELYNE Administration Piperacillin/Tazobactam/ 50 mls @ 12.5 mls/hr 05/25/18 08:15 Dextrose 3.375 gm/ IV Solution IVPB Q8HR EVELYNE Losartan Potassium 50 mg 05/24/18 21:00 05/24/18 20:11 Cozaar PO 50 mg HS EVELYNE Administration Magnesium Oxide 400 mg 05/24/18 07:30 05/25/18 07:55 Mag-Ox PO 400 mg BID-W/MEALS EVELYNE Administration Metoprolol Succinate 25 mg 05/24/18 21:00 05/25/18 07:54 Toprol Xl PO 25 mg BID [facility] Administration Nitroglycerin 0.4 mg 05/24/18 06:40 Nitrostat SUBLINGUAL Q5M PRN Chest Pain Ondansetron HCl 4 mg 05/24/18 12:15 05/25/18 07:17 Zofran IVP 4 mg Q6HR PRN Administration Nausea And Vomiting Pantoprazole Sodium 40 mg 05/24/18 12:30 05/25/18 07:55 Protonix IVP 40 mg BID [facility] Administration Senna/Docusate Sodium 2 each 05/24/18 12:12 Senokot-S PO DAILY PRN Constipation Intake and Output 05/24/18 05/25/18 05/25/18 22:59 06:59 14:59 Intake Total 225 600 150 Balance 225 600 150 Intake: Intake, IV Titration 225 600 150 Amount Sodium Chloride 0.9% 1, 225 600 150 000 ml @ 75 mls/hr IV . [id number] [facility] Rx#:[id number] Other: Voiding Method Toilet # Voids 1 05/25/18 08:10 05/25/18 08:10 EKG Interpretations (text) Showed atrial fibrillation with a right bundle branch block pattern Assessment and Plan (1) Sustained ventricular tachycardia Current Visit: Yes Status: Acute Code(s): I47.2 - VENTRICULAR TACHYCARDIA SNOMED Code(s): 092912459 (2) Acute abdomen Current Visit: Yes Status: Acute Code(s): R10.0 - ACUTE ABDOMEN SNOMED Code(s): 1060462 (3) Coronary arteriosclerosis in patient with history of previous myocardial infarction Current Visit: Yes Status: Acute Code(s): I25.10 - ATHSCL HEART DISEASE OF [place] CORONARY ARTERY W/O ANG PCTRS; I25.2 - OLD MYOCARDIAL INFARCTION SNOMED Code(s): 618689230627928 (4) Chronic atrial fibrillation Current Visit: Yes Status: Acute Code(s): I48.2 - CHRONIC ATRIAL FIBRILLATION SNOMED Code(s): 667121709 (5) History of aortic dissection Current Visit: Yes Status: Acute Code(s): Z86.79 - PERSONAL HISTORY OF OTHER DISEASES OF THE CIRCULATORY SYSTEM SNOMED Code(s): 019444660 Plan: I'll start patient on IV amiodarone bolus and drip. I will also supplement with magnesium. We'll continue rest of the medication. Patient's needs surgical follow-up. Rest of the medication to be continued. Prognosis is guarded
[2018-05-25] MEDS ORDERED: MAGNESIUM SULFATE-D5W PMX 1 GM in DEXTROSE/WATER 1 100ML.BAG IVPB ONE (10:15)
[2018-05-25] MEDS ORDERED: DEXTROSE 5% IN WATER 100 ML with AMIODARONE 150 MG IV ONE (10:15)
[2018-05-25] MEDS ORDERED: PHYTONADIONE 10 MG in SODIUM CHLORIDE 0.9% 50 ML IVPB STA (11:05)
--- NOTE | 2018-05-25 11:12 | P.GSCN ---
History of Present Illness Consult date: 05/25/18 History of present illness: This is a 78-year-old male with significant past medical and surgical history recently had a descending thoracic aneurysm repair at an outside hospital. Patient had just returned home 2 days ago when he began expressing midepigastric and right upper quadrant abdominal pain. He denies any nausea or vomiting. No fevers or chills Overnight last night he began experiencing worsening pain. He's never had pain like this before. He was on Coumadin at home. His INR is 1.6 at this time. Past Medical History Past Medical History: Cancer, GERD/Reflux, Hyperlipidemia, Hypertension, Myocardial Infarction (MS), Skin Disorder, Sleep Apnea/CPAP/BIPAP Additional Past Medical History / Comment(s): Skin CA 2014 removal, Last Myocardial Infarction Date:: History of Any Multi-Drug Resistant Organisms: MRSA Year Discovered:: 2000 MDRO Source:: Right elbow Past Surgical History: Cardiac Ablation, Heart Catheterization With Stent Additional Past Surgical History / Comment(s): aortic dissection Past Anesthesia/Blood Transfusion Reactions: No Reported Reaction Date of Last Stent Placement:: 2005 Type of Cardiac Device: Permanent Pacemaker Device Placement Date:: march 2008 Past Psychological History: No Psychological Hx Reported Smoking Status: Never smoker Past Alcohol Use History: None Reported Additional Past Alcohol Use History / Comment(s): 1-2 drinks Past Drug Use History: None Reported - Past Family History Father Family Medical History: Cancer, Diabetes Mellitus, Myocardial Infarction (MS) Medications and Allergies Home Medications Medication Instructions Recorded Confirmed Type Allopurinol 300 mg PO HS 04/05/14 05/24/18 History Atorvastatin [Lipitor] 40 mg PO HS 04/05/14 05/24/18 History Colchicine [Colcrys] 1 tab PO DIRECTED PRN 04/05/14 05/24/18 History Doxazosin [Cardura] 2 mg PO HS 04/05/14 05/24/18 History Furosemide [Lasix] 20 mg PO MOWEFR 04/05/14 05/24/18 History Magnesium Oxide 400 mg PO BID-W/MEALS 04/05/14 05/24/18 History clonazePAM [KlonoPIN] 1 mg PO HS 04/05/14 05/24/18 History Albuterol Sulfate [Proair Hfa] 1 - 2 puff INHALATION RT-Q6H PRN 04/08/18 History Warfarin [Coumadin] 5 mg PO SUMOWEFRSA 04/08/18 05/24/18 History Acetaminophen Tab [Tylenol Tab] 650 mg PO Q6H PRN 05/24/18 05/24/18 History Aspirin [Adult Low Dose Aspirin EC] 81 mg PO DAILY 05/24/18 05/24/18 History Docusate [Colace] 100 mg PO BID PRN 05/24/18 05/24/18 History Metoprolol Succinate [Toprol XL] 25 mg PO BID 05/24/18 05/24/18 History Sennosides/Docusate Sodium 2 tablet PO DAILY PRN 05/24/18 05/24/18 History [Senna-S Laxative Tablet] Warfarin [Coumadin] 7.5 mg PO TUTH 05/24/18 05/24/18 History Allergies Allergy/AdvReac Type Severity Reaction Status Date / Time No Known Allergies Allergy Verified 05/24/18 11:04 Surgical - Exam Osteopathic Statement: *. No significant issues noted on an osteopathic structural exam other than those noted in the History and Physical/Consult. Vital Signs Temp Pulse Resp BP Pulse Ox 97.6 F 85 18 99/61 97 05/24/18 04:04 05/24/18 04:04 05/24/18 04:04 05/24/18 04:04 05/24/18 04:04 - General well developed, well nourished, no distress - Neck trachea midline - Respiratory normal expansion - Abdomen Soft nondistended tender to palpation right upper quadrant - Neurologic normal coordination, normal sensation - Psychiatric oriented to time, oriented to person, oriented to place Results - Labs 05/25/18 08:10 05/25/18 08:10 Abnormal Lab Results - Last 24 Hours (Table) 05/24/18 05/24/18 05/24/18 Range/Units 04:16 10:34 15:40 WBC (3.8-10.6) k/uL RBC (4.30-5.90) m/uL Hgb (13.0-17.5) gm/dL Hct (39.0-53.0) % MCHC (31.0-37.0) g/dL RDW (11.5-15.5) % Neutrophils # (1.3-7.7) k/uL Lymphocytes # (1.0-4.8) k/uL Monocytes # (0-1.0) k/uL PT (9.0-12.0) sec INR (<1.2) Potassium (3.5-5.1) mmol/L Glucose (74-99) mg/dL Calcium (8.4-10.2) mg/dL Total Bilirubin (0.2-1.3) mg/dL Total Creatine Kinase 23 L 22 L (55-170) U/L Total Protein (6.3-8.2) g/dL Albumin (3.5-5.0) g/dL HDL Cholesterol 16 L (40-60) mg/dL Ur Specific [place] (1.001-1.035) Urine Protein (Negative) Ur Leukocyte Esterase (Negative) Urine Bacteria (None) /hpf Urine Mucus (None) /hpf 05/24/18 05/25/18 05/25/18 Range/Units 17:01 08:10 08:10 WBC 22.3 H (3.8-10.6) k/uL RBC 3.34 L (4.30-5.90) m/uL Hgb 9.6 L (13.0-17.5) gm/dL Hct 31.9 L (39.0-53.0) % MCHC 30.0 L (31.0-37.0) g/dL RDW 16.3 H (11.5-15.5) % Neutrophils # 20.2 H (1.3-7.7) k/uL Lymphocytes # 0.5 L (1.0-4.8) k/uL Monocytes # 1.4 H (0-1.0) k/uL PT (9.0-12.0) sec INR (<1.2) Potassium 5.2 H (3.5-5.1) mmol/L Glucose 132 H (74-99) mg/dL Calcium 7.9 L (8.4-10.2) mg/dL Total Bilirubin 1.6 H (0.2-1.3) mg/dL Total Creatine Kinase (55-170) U/L Total Protein 5.5 L (6.3-8.2) g/dL Albumin 2.6 L (3.5-5.0) g/dL HDL Cholesterol (40-60) mg/dL Ur Specific [place] 1.037 H (1.001-1.035) Urine Protein Trace H (Negative) Ur Leukocyte Esterase Trace H (Negative) Urine Bacteria Rare H (None) /hpf Urine Mucus Rare H (None) /hpf 05/25/18 Range/Units 08:10 WBC (3.8-10.6) k/uL RBC (4.30-5.90) m/uL Hgb (13.0-17.5) gm/dL Hct (39.0-53.0) % MCHC (31.0-37.0) g/dL RDW (11.5-15.5) % Neutrophils # (1.3-7.7) k/uL Lymphocytes # (1.0-4.8) k/uL Monocytes # (0-1.0) k/uL PT 14.6 H (9.0-12.0) sec INR 1.6 H (<1.2) Potassium (3.5-5.1) mmol/L Glucose (74-99) mg/dL Calcium (8.4-10.2) mg/dL Total Bilirubin (0.2-1.3) mg/dL Total Creatine Kinase (55-170) U/L Total Protein (6.3-8.2) g/dL Albumin (3.5-5.0) g/dL HDL Cholesterol (40-60) mg/dL Ur Specific [place] (1.001-1.035) Urine Protein (Negative) Ur Leukocyte Esterase (Negative) Urine Bacteria (None) /hpf Urine Mucus (None) /hpf Diabetes panel 05/24/18 05/25/18 Range/Units 04:16 08:10 Sodium 137 (137-145) mmol/L Potassium 5.2 H (3.5-5.1) mmol/L Chloride 104 (98-107) mmol/L Carbon Dioxide 25 (22-30) mmol/L BUN 18 (9-20) mg/dL Creatinine 0.90 (0.66-1.25) mg/dL Glucose 132 H (74-99) mg/dL Calcium 7.9 L (8.4-10.2) mg/dL AST 22 (17-59) U/L ALT 37 (21-72) U/L Alkaline Phosphatase 108 (38-126) U/L Total Protein 5.5 L (6.3-8.2) g/dL Albumin 2.6 L (3.5-5.0) g/dL Triglycerides 132 (<150) mg/dL HDL Cholesterol 16 L (40-60) mg/dL Calcium panel 05/25/18 Range/Units 08:10 Calcium 7.9 L (8.4-10.2) mg/dL Albumin 2.6 L (3.5-5.0) g/dL Pituitary panel 05/25/18 Range/Units 08:10 Sodium 137 (137-145) mmol/L Potassium 5.2 H (3.5-5.1) mmol/L Chloride 104 (98-107) mmol/L Carbon Dioxide 25 (22-30) mmol/L BUN 18 (9-20) mg/dL Creatinine 0.90 (0.66-1.25) mg/dL Glucose 132 H (74-99) mg/dL Calcium 7.9 L (8.4-10.2) mg/dL Adrenal panel 05/25/18 Range/Units 08:10 Sodium 137 (137-145) mmol/L Potassium 5.2 H (3.5-5.1) mmol/L Chloride 104 (98-107) mmol/L Carbon Dioxide 25 (22-30) mmol/L BUN 18 (9-20) mg/dL Creatinine 0.90 (0.66-1.25) mg/dL Glucose 132 H (74-99) mg/dL Calcium 7.9 L (8.4-10.2) mg/dL Total Bilirubin 1.6 H (0.2-1.3) mg/dL AST 22 (17-59) U/L ALT 37 (21-72) U/L Alkaline Phosphatase 108 (38-126) U/L Total Protein 5.5 L (6.3-8.2) g/dL Albumin 2.6 L (3.5-5.0) g/dL Assessment and Plan Assessment: Acute cholecystitis Plan: I discussed the options with the patient and the patient's family. Laparoscopic cholecystectomy possible open was discussed with the patient in detail. He is a higher risk secondary to recent surgeries and a descending thoracic aneurysm repair. Patient will be given vitamin K. Kept nothing by mouth. continue IV antibiotics. The risks benefits and alternatives to laparoscopic cholecystectomy were discussed the patient risks including bleeding infection damage to surrounding tissue need for further operation damage to common bile duct were all discussed also the possibility of converting to open. Patient stated he understood agreed and consented
[2018-05-25] MEDS: PIPERACILLIN-TAZOBACTAM 3.375 GM in DEXTROSE/WATER 1 50ML.BAG IVPB SCH ×2 (11:52→20:00)
[2018-05-25] MEDS: AMIODARONE 450 MG in DEXTROSE 5% IN WATER 250 ML IV SCH ×4 (11:55→22:42)
[2018-05-25] MEDS ORDERED: LACTATED RINGERS 1,000 ML IV ONE ×2 (12:41→14:38)
[2018-05-25] MEDS ORDERED: BUPIVACAIN-EPI 0.25%-1:200,000 30 ML VIAL SQ ONE ×2 (13:02)
--- NOTE | 2018-05-25 14:59 | P.OP ---
Date of Procedure: 05/25/18 Preoperative Diagnosis: Acute cholecystitis Postoperative Diagnosis: Acute Gangrenous Cholecystitis Procedure(s) Performed: Laparoscopic cholecystectomy Anesthesia: ANAND Surgeon: Ambrosio Cortes Estimated Blood Loss (ml): 50 Pathology: other (Fluid cultures from gallbladder and gallbladder) Condition: critical Disposition: ICU Indications for Procedure: This is a 78-year-old male who presented with symptoms consistent with acute cholecystitis significant surgical and medical history per HPI. He was described the risks benefits and alternatives to laparoscopic cholecystectomy including risks of bleeding infection damage to surrounding tissue need for further operation common bile duct injury bile leak and conversion to open he stated he understood agreed and consented Operative Findings: Acute gangrenous cholecystitis Description of Procedure: Patient was brought into the operative suite remained in the supine position underwent general endotracheal anesthesia per Department of anesthesia timeout was performed correct patient correct procedure correct site was verified. The 12 mm incision was just to the left of the umbilicus. Using a 10 mm scope and Visiport the abdomen was entered under direct visualization. It was insufflated. The patient was placed in reverse Trendelenburg right side up. The gallbladder was noted to be adhered to the omentum and acutely gangrenous. The omentum was taken down bluntly. The transverse colon was also adhered to the gallbladder this was taken down bluntly. With care to avoid injury to the colon. LigaSure device was used to take down some of the adhesions. The gallbladder was drained with an ovarian cyst needle. The fluid was noted to be purulent. An bilious. The gallbladder was retracted cephalad and the adhesions were taken down to Winters's pouch was identified and retracted. The cystic duct and cystic artery were skeletonized revealing the critical view of safety. The cystic artery was doubly clipped and ligated the cystic duct was noted to be friable and gangrenous at this time decision was made to use a 45 mm kirkland load Endo STARLA stapler the staple across the duct. The 5 mm port site in the epigastric area was upsized to a 12 mm port and a stapler was used to staple across the duct under direct visualization. The gallbladder was then removed from the liver bed using Bovie electrocautery. It was placed in Endo Catch bag and removed through the epigastric port site. The abdomen and gallbladder fossa were copiously irrigated and suctioned until clear hemostasis was achieved the liver bed appeared to be inflamed and oozing some blood and Surgicel was placed at this time. Hemostasis was noted. A WARD drain was placed in the gallbladder fossa and sutured into place to the skin with a 3-0 silk. All ports removed under direct visualization the abdomen was desufflated and hemostasis was then once again noted. The midepigastric incision was closed with interrupted 0 Vicryl in a [id number] fashion. The wounds were copiously irrigated and skin joyce and sterile dressings were applied. Patient tolerated procedure well he is in critical condition and transferred to the ICU
[2018-05-25] MEDS ORDERED: PHENYLEPHRINE 40 MG in SODIUM CHLORIDE 0.9% 250 ML IV SCH ×2 (15:15→15:45)
[2018-05-25 16:16] LABS: Glucose,Whole Blood 126 mg/dL (75-99)
--- NOTE | 2018-05-25 16:18 | PN ---
PROGRESS NOTE CHIEF COMPLAINT: Re-evaluation. HISTORY OF PRESENT ILLNESS: This gentleman was admitted to the hospital yesterday with epigastric pain and nausea and vomiting. The patient had evidence suggestive of possible gastritis. Also noted some gallbladder wall thickening and sludge in the gallbladder with no evidence of any elevated liver enzymes or bilirubin or white count. The patient has been given symptomatic treatment. Today, this morning, he did have a run of ventricular tachycardia as well as atrial fibrillation and went into rapid ventricular rate. On further evaluation, the patient is not pointing the pain at the right upper quadrant midpoint at the gallbladder site. The patient has definite tenderness there. The patient also white count is elevated 22,000. The patient is felt to have an underlying acute cholecystitis. In view of this, the patient advised transfer to the telemetry. Also contacted Dr. Cortes who had seen the patient yesterday to reassess the patient. After reassessment, he did call me back and we did discuss that the patient requires surgical intervention. The patient has been seen by Cardiology. The patient has been placed on amiodarone drip. The patient's INR was 1.6. Apparently, the patient did have some issues with heparin at [facility]. I believe his platelets might have gone down and do not know whether he was hit or just some decreased platelet count, as he does have decreased platelet count at present. REVIEW OF SYSTEMS: Neuro: Denies any headaches, dizziness. Psych: No anxiety, or depression. Cardiac: No chest pain, angina, palpitations. Respiratory denies shortness of breath. Mildly tachypneic. Some cough. Every time he coughs he says he gets nauseous. GI: Present complaint of nausea, vomiting, abdominal pain. No diarrhea, constipation. no symptoms of dysuria or hematuria. Extremities: No pain. Constitutional: No fever or chills. PHYSICAL EXAMINATION: Pleasant gentleman at present, not feeling well. Vital signs revealed temperature 98.1, pulse 97, respirations 20, blood pressure 116/54, pulse ox 92% on room air, subsequently the patient's heart rate had gone up into the 150s. Was given an extra dose of metoprolol. HEENT: Normocephalic. NECK: Supple. No JVD. Pupils are reactive. Nostrils clear. Oral cavity dry. CHEST: Clear to auscultation with decreased air flow at the left base. Occasional crackles to the left base. CARDIAC: Distant heart sounds S1, S2 with no gallops. Systolic murmur 2/6 left sternal border. Irregularly irregular heart rhythm. Abdomen is protuberant. Tenderness with guarding of the Whittaker's point. Bowel sounds active. Extremities reveal no edema. No tenderness. NEUROLOGIC: Awake, alert, oriented, well-coordinated movements. LABORATORY ASSESSMENT: White count 22.3, hemoglobin 9.6, platelets 165, left shift. INR 1.6, potassium 5.2, glucose 132, magnesium 1.7, bilirubin up to 1.6. Tropes have been negative. Albumin 2.6. Urinalysis had a specific gravity 1.037, otherwise unremarkable. ASSESSMENT: 1. Acute cholecystitis. 2. Ventricular tachycardia. 3. Atrial fibrillation. 4. History of chronic atrial fibrillation. 5. Anemia. 6. Status post recent ascending aorta dissection repair. PLAN: The patient at present is acutely ill. As mentioned above, discussed with Dr. Cortes. He is planning the patient to have a surgical procedure. The patient's condition is discussed with the spouse. Prognosis remains guarded. The patient's condition discussed with Dr. Jordan from Cardiology as well. The patient's prognosis remains guarded MMODL / IJN: [id number] /
[2018-05-25] MEDS ORDERED: NOREPINEPHRINE 4 MG in SODIUM CHLORIDE 0.9% 250 ML IV SCH (17:45)
[2018-05-25] MEDS ORDERED: NALOXONE 0.4 MG/ML 1 ML VIAL IV PRN (17:45)
[2018-05-25] MEDS: LACTATED RINGERS 500 ML IV SCH (18:00)
[2018-05-25] MEDS: LACTATED RINGERS 1,000 ML IV SCH (21:46)
[2018-05-25] MEDS: LOSARTAN 50 MG TAB PO SCH (21:50)
[2018-05-25] MEDS: ALLOPURINOL 300 MG TAB PO SCH (21:50)
[2018-05-25] MEDS: DOXAZOSIN 2 MG TAB PO SCH (21:50)
[2018-05-25] MEDS: ATORVASTATIN 40 MG TAB PO SCH (21:57)
[2018-05-25] MEDS: clonazePAM 1 MG TAB PO SCH (21:58)
[2018-05-26] MEDS: HYDROmorphone 1 MG/ML 1 ML SYRINGE IVP PRN (00:29)
[2018-05-26] MEDS: PIPERACILLIN-TAZOBACTAM 3.375 GM in DEXTROSE/WATER 1 50ML.BAG IVPB SCH ×3 (00:29→16:01)
[2018-05-26 03:54] LABS: Anisocytosis Slight; Basophils % (A) 0 %; Eosinophils % (A) 0 %; HCT 27.5 % (39.0-53.0); HGB 8.3 gm/dL (13.0-17.5); Hypochromasia Marked; Lymphocytes # (A) 0.4 k/uL (1.0-4.8); Lymphocytes % (A) 2 %; MCH 28.5 pg (25.0-35.0); MCHC 30.3 g/dL (31.0-37.0); MCV 93.9 fL (80.0-100.0); Mean Platelet Volume 7.6; Monocytes # (A) 0.7 k/uL (0-1.0); Monocytes % (A) 5 %; Neutrophils # (A) 14.6 k/uL (1.3-7.7); Neutrophils % (A) 92 %; Platelet Count 161 k/uL (150-450); Poikilocytosis Slight; RBC 2.93 m/uL (4.30-5.90); RDW 16.1 % (11.5-15.5); WBC 15.9 k/uL (3.8-10.6)
[2018-05-26 04:07] LABS: Calcium 7.5 mg/dL (8.4-10.2); Phosphorus 3.3 mg/dL (2.5-4.5); Potassium 5.4 mmol/L (3.5-5.1)
[2018-05-26] MEDS: LACTATED RINGERS 1,000 ML IV SCH (05:00)
[2018-05-26] MEDS ORDERED: SODIUM CHLORIDE 0.9% 500 ML IV ONE (08:04)
[2018-05-26] MEDS: SODIUM CHLORIDE 0.9% 1,000 ML IV SCH ×3 (08:21→20:32)
[2018-05-26] MEDS: LACTATED RINGERS 500 ML IV SCH ×5 (08:21→08:27)
[2018-05-26] MEDS: ASPIRIN 81 MG PO SCH (08:25)
[2018-05-26] MEDS: METOPROLOL SUCCINATE (ER) 25 MG TAB.ER.24H PO SCH ×2 (08:25→20:32)
[2018-05-26] MEDS: AMIODARONE 450 MG in DEXTROSE 5% IN WATER 250 ML IV SCH ×6 (08:26→15:51)
[2018-05-26] MEDS: MAGNESIUM OXIDE 400 MG TAB PO SCH ×2 (08:26→16:02)
--- NOTE | 2018-05-26 08:31 | XR ---
EXAMINATION TYPE: XR chest 1V DATE OF EXAM: 05/26/2018 COMPARISON: Prior chest x-ray 05/25/[address] chest 05/24/2018 HISTORY: Shortness of breath TECHNIQUE: Single frontal view of the chest is obtained. FINDINGS: Patient is rotated. Patient is post median sternotomy, possible aortic valve replacement. Mediastinum is widened as on prior exam, the heart remains enlarged. Pacemaker is present in the left pectoral region with leads in the right atrium and ventricle. No evident pneumothorax. Lung volumes are low. Patchy bibasilar density persists. There are overlying cardiac leads. IMPRESSION: Low lung volumes. Heart size may be accentuated by rotation. Correlate for possible pulm onary venous hypertension and interstitial edema. Follow-up PA and lateral chest x-ray recommended. P robable basilar atelectasis. Additional findings above.
[2018-05-26] MEDS ORDERED: ENOXAPARIN 40 MG/0.4 ML SYRINGE SQ SCH (09:00)
[2018-05-26] MEDS ORDERED: FUROSEMIDE 20 MG TAB PO SCH (09:00)
--- NOTE | 2018-05-26 09:37 | P.CNPUL ---
History of Present Illness Consult date: 05/26/18 Chief complaint: Abdominal pain, acute gangrenous cholecystitis, s/post lap keisha History of present illness: This is 78-year-old white male patient of Dr. Infante, who presented to the emergency department on 05/24/2018 with acute abdominal pain, nausea, vomiting. Patient had a recent repair of his thoracic aorta at the [facility], CT angios of thoracic and abdominal aorta was negative for any evidence of dissection. Ultrasound of the abdomen sludge containing thick-walled gallbladder, and mild hepatomegaly. Initial blood work showed WBC of 7.1, hemoglobin is 9.0, platelet count is 146, INR is 1.2, sodium is 134, the rest of the electrolytes were within normal limits, lactic acid was 1.4, troponins were negative, albumin was 2.8, LFTs were unremarkable, amylase and lipase were within normal limits. Urinalysis was positive for just trace leuks, and rare bacteria. Surgical consultation was placed, the patient was recommended to undergo laparoscopic cholecystectomy, and today were seen patient in the intensive care unit and it is postoperative day 1. Patient is awake, and alert , his pain is reasonably controlled, only having discomfort with moving, and occasionally with coughing. Pulse ox on 4 L per nasal cannula was 96%, he is afebrile, he is in atrial fibrillation, and patient is chronic A. fib on chronic anticoagulation with Coumadin. In the postoperative period there was questionable run of V. tach, patient was placed on amiodarone drip, which is currently infusing at a rate of 0.5 mg per min. maintenance IV fluids is 0.9 normal saline at 100 ML per hour. Patient had received 500 mL fluid bolus for hypotension in the postoperative period, levo fed is off. He is not tachycardic , heart rate is controlled, 60 and 70 BPM. He is producing urine in the order of 30-35 ML per hour. Lung sounds are clear, no rhonchi, no wheezes. He is pulling 1200 on the incentive spirometry today. He remains on Zosyn, gallbladder fluid Gram stain and culture is pending. No fever, no chills. He is nothing by mouth except for ice chips. Past medical history is positive for A. fib and patient has a permanent pacemaker, hypertension, hyperlipidemia, previous myocardial infarction, Paget's disease, thoracic aortic aneurysm as mentioned above, BPH. Review of Systems All systems: negative Constitutional: Denies chills, Denies fever Eyes: denies blurred vision, denies pain Ears, nose, mouth and throat: Denies headache, Denies sore throat Cardiovascular: Reports irregular heart beat, Denies chest pain, Denies shortness of breath Respiratory: Denies cough Gastrointestinal: Reports constipation, Reports nausea, Reports vomiting, Denies abdominal pain, Denies diarrhea Musculoskeletal: Denies myalgias Integumentary: Denies pruritus, Denies rash Neurological: Denies numbness, Denies weakness Psychiatric: Denies anxiety, Denies depression Endocrine: Denies fatigue, Denies weight change Past Medical History Past Medical History: Cancer, GERD/Reflux, Hyperlipidemia, Hypertension, Myocardial Infarction ([place]), Skin Disorder, Sleep Apnea/CPAP/BIPAP Additional Past Medical History / Comment(s): Skin CA 2014 removal, Last Myocardial Infarction Date:: History of Any Multi-Drug Resistant Organisms: MRSA Date of last positivie culture/infection: 2000 MDRO Source:: Right elbow Past Surgical History: Cardiac Ablation, Heart Catheterization With Stent Additional Past Surgical History / Comment(s): aortic dissection Past Anesthesia/Blood Transfusion Reactions: No Reported Reaction Date of Last Stent Placement:: 2005 Type of Cardiac Device: Permanent Pacemaker Device Placement Date:: march 2008 Past Psychological History: No Psychological Hx Reported Smoking Status: Never smoker Past Alcohol Use History: None Reported Additional Past Alcohol Use History / Comment(s): 1-2 drinks Past Drug Use History: None Reported - Past Family History Father Family Medical History: Cancer, Diabetes Mellitus, Myocardial Infarction ([place]) Medications and Allergies Home Medications Medication Instructions Recorded Confirmed Type Allopurinol 300 mg PO HS 04/05/14 05/24/18 History Atorvastatin [Lipitor] 40 mg PO HS 04/05/14 05/24/18 History Colchicine [Colcrys] 1 tab PO DIRECTED PRN 04/05/14 05/24/18 History Doxazosin [Cardura] 2 mg PO HS 04/05/14 05/24/18 History Furosemide [Lasix] 20 mg PO MOWEFR 04/05/14 05/24/18 History Magnesium Oxide 400 mg PO BID-W/MEALS 04/05/14 05/24/18 History clonazePAM [KlonoPIN] 1 mg PO HS 04/05/14 05/24/18 History Albuterol Sulfate [Proair Hfa] 1 - 2 puff INHALATION RT-Q6H PRN 04/08/18 History Warfarin [Coumadin] 5 mg PO SUMOWEFRSA 04/08/18 05/24/18 History Acetaminophen Tab [Tylenol Tab] 650 mg PO Q6H PRN 05/24/18 05/24/18 History Aspirin [Adult Low Dose Aspirin EC] 81 mg PO DAILY 05/24/18 05/24/18 History Docusate [Colace] 100 mg PO BID PRN 05/24/18 05/24/18 History Metoprolol Succinate [Toprol XL] 25 mg PO BID 05/24/18 05/24/18 History Sennosides/Docusate Sodium 2 tablet PO DAILY PRN 05/24/18 05/24/18 History [Senna-S Laxative Tablet] Warfarin [Coumadin] 7.5 mg PO TUTH 05/24/18 05/24/18 History Allergies Allergy/AdvReac Type Severity Reaction Status Date / Time heparin (porcine) Allergy Severe Anaphylaxis Verified 05/25/18 19:30 Physical Exam Vitals: Vital Signs Temp Pulse Pulse Pulse Resp BP BP 05/26/18 07:00 78 19 91/58 05/26/18 06:30 85 21 90/61 05/26/18 06:00 81 20 98/60 05/26/18 05:30 79 17 96/62 05/26/18 05:00 81 16 110/72 05/26/18 04:30 84 18 102/70 05/26/18 04:00 76 22 100/63 05/26/18 03:30 87 20 98/57 05/26/18 03:00 78 16 100/64 05/26/18 02:30 75 20 92/61 05/26/18 02:00 84 22 95/65 05/26/18 01:30 75 20 94/57 05/26/18 01:00 81 22 101/58 05/26/18 00:30 98.6 F 81 18 110/67 05/26/18 00:00 83 22 110/64 05/25/18 23:30 85 22 105/73 05/25/18 23:24 86 21 105/73 05/25/18 23:00 87 22 104/72 05/25/18 22:30 88 20 110/68 05/25/18 22:00 77 22 105/65 05/25/18 21:30 89 22 102/64 05/25/18 21:15 82 20 99/65 05/25/18 21:00 85 21 103/65 05/25/18 20:45 97.9 F 78 16 108/67 05/25/18 20:30 88 18 107/66 05/25/18 20:15 76 19 107/68 05/25/18 20:00 81 20 113/64 05/25/18 19:45 88 20 109/66 05/25/18 19:30 72 19 114/70 05/25/18 19:15 77 17 108/67 05/25/18 19:00 78 18 101/60 05/25/18 18:45 66 18 91/59 05/25/18 18:30 84 17 84/55 05/25/18 18:15 71 15 99/57 05/25/18 18:00 82 19 88/58 05/25/18 17:53 72 18 05/25/18 17:45 73 16 90/64 05/25/18 17:30 75 18 91/59 05/25/18 17:15 81 18 99/59 05/25/18 17:00 73 24 99/64 05/25/18 16:45 69 22 95/59 05/25/18 16:30 97.6 F 79 20 81/50 05/25/18 16:14 77 05/25/18 15:45 72 20 90/60 05/25/18 15:35 71 20 98/60 05/25/18 15:20 74 20 80/55 05/25/18 15:07 98.3 F 73 20 86/50 05/25/18 12:20 110/67 05/25/18 12:00 99.0 F 90 22 86/59 Pulse Ox 05/26/18 07:00 96 05/26/18 06:30 94 L 05/26/18 06:00 94 L 05/26/18 05:30 96 05/26/18 05:00 96 05/26/18 04:30 94 L 05/26/18 04:00 94 L 05/26/18 03:30 94 L 05/26/18 03:00 93 L 05/26/18 02:30 94 L 05/26/18 02:00 94 L 05/26/18 01:30 93 L 05/26/18 01:00 94 L 05/26/18 00:30 95 05/26/18 00:00 95 05/25/18 23:30 94 L 05/25/18 23:24 94 L 05/25/18 23:00 94 L 05/25/18 22:30 95 05/25/18 22:00 95 05/25/18 21:30 94 L 05/25/18 21:15 90 L 05/25/18 21:00 93 L 05/25/18 20:45 95 05/25/18 20:30 95 05/25/18 20:15 95 05/25/18 20:00 94 L 05/25/18 19:45 95 05/25/18 19:30 96 05/25/18 19:15 96 05/25/18 19:00 96 05/25/18 18:45 97 05/25/18 18:30 97 05/25/18 18:15 95 05/25/18 18:00 97 05/25/18 17:53 05/25/18 17:45 96 05/25/18 17:30 96 05/25/18 17:15 96 05/25/18 17:00 96 05/25/18 16:45 99 05/25/18 16:30 96 05/25/18 16:14 05/25/18 15:45 98 05/25/18 15:35 98 05/25/18 15:20 97 05/25/18 15:07 99 05/25/18 12:20 05/25/18 12:00 94 L Intake and Output 05/25/18 05/26/18 05/26/18 22:59 06:59 14:59 Intake Total 1731 994.50 762.157 Output Total 380 290 63 Balance 1351 704.50 699.157 Intake: IV 1381 850.0 600 Lactated Ringers 1,000 ml 300 800 100 @ 100 mls/hr IV .Q10H [facility] Rx#:[id number] Lactated Ringers 500 ml @ 500 999 mls/hr IV .Q31M [facility] Rx#:[id number] Piperacillin-Tazobactam 3 50.0 .375 gm In Dextrose/Water 1 50ml.bag @ 12.5 mls/hr IVPB Q8HR [facility] Rx#: [id number] Sodium Chloride 0.9% 1, 75 000 ml @ 75 mls/hr IV . [id number] [facility] Rx#:[id number] Sodium Chloride 0.9% 500 500 ml @ 999 mls/hr IV .Q31M [facility] Rx#:[id number] Intake, IV Titration 350 144.50 162.157 Amount Amiodarone 450 mg In 250 162.157 Dextrose 5% in Water 250 ml @ 1 MG/MIN 33.33 mls/ hr IV .Q7H31M [facility] Rx#: [id number] Lactated Ringers 1,000 ml 100 @ 100 mls/hr IV .Q10H [facility] Rx#:[id number] Norepinephrine 4 mg In 144.50 Sodium Chloride 0.9% 250 ml @ Titrate IV .Q0M [facility] Rx#:[id number] Output: Drainage 75 30 Right Lower Abdomen 75 30 Urine 305 260 63 Other: Voiding Method Indwelling Catheter Indwelling Catheter Weight 120 kg GENERAL EXAM: Alert, pleasant, 78-year-old white male, seen in the intensive care unit, currently on 4 L per nasal cannula comfortable in no apparent distress. HEAD: Normocephalic/atraumatic. EYES: Normal reaction of pupils, equal size. Conjunctiva pink, sclera white. NOSE: Clear with pink turbinates. THROAT: No erythema or exudates. NECK: No masses, no JVD, no thyroid enlargement, no adenopathy. CHEST: No chest wall deformity. Symmetrical expansion. LUNGS: Equal air entry with no crackles, wheeze, rhonchi or dullness. CVS: Irregular rate and rhythm, normal S1 and S2, no gallops, no murmurs, no rubs ABDOMEN: Soft, nontender. No hepatosplenomegaly, normal bowel sounds, no guarding or rigidity. Abdominal laparoscopic incisions are clean dry and intact , there is a WARD drain in the right upper abdomen, with thin brownish output, bowel sounds are hypoactive EXTREMITIES: No clubbing, no edema, no cyanosis, 2+ pulses and upper and lower extremities. MUSCULOSKELETAL: Muscle strength and tone normal. SPINE: No scoliosis or deformity SKIN: No rashes CENTRAL NERVOUS SYSTEM: Alert and oriented -3. No focal deficits, tone is normal in all 4 extremities. PSYCHIATRIC: Alert and oriented -3. Appropriate affect. Intact judgment and insight. Results - Laboratory Findings CBC and BMP: 05/26/18 03:36 05/26/18 03:36 PT/INR, D-dimer PT 14.6 sec (9.0-12.0) H 05/25/18 08:10 INR 1.6 (<1.2) H 05/25/18 08:10 Abnormal lab findings: Abnormal Labs 05/24/18 05/24/18 05/24/18 04:16 04:16 04:16 WBC RBC 2.96 L Hgb 9.0 L Hct 28.5 L MCHC RDW 19.1 H Plt Count 146 L Neutrophils # Lymphocytes # 0.8 L Monocytes # PT INR 1.2 H Sodium 134 L Potassium BUN Glucose 137 H POC Glucose (mg/dL) Calcium 8.2 L Total Bilirubin Total Creatine Kinase Total Protein 5.7 L Albumin 2.8 L HDL Cholesterol Ur Specific [place] Urine Protein Ur Leukocyte Esterase Urine Bacteria Urine Mucus 05/24/18 05/24/18 05/24/18 04:16 04:16 10:34 WBC RBC Hgb Hct MCHC RDW Plt Count Neutrophils # Lymphocytes # Monocytes # PT INR Sodium Potassium BUN Glucose POC Glucose (mg/dL) Calcium Total Bilirubin Total Creatine Kinase 24 L 23 L Total Protein Albumin HDL Cholesterol 16 L Ur Specific [place] Urine Protein Ur Leukocyte Esterase Urine Bacteria Urine Mucus 05/24/18 05/24/18 05/25/18 15:40 17:01 08:10 WBC 22.3 H RBC 3.34 L Hgb 9.6 L Hct 31.9 L MCHC 30.0 L RDW 16.3 H Plt Count Neutrophils # 20.2 H Lymphocytes # 0.5 L Monocytes # 1.4 H PT INR Sodium Potassium BUN Glucose POC Glucose (mg/dL) Calcium Total Bilirubin Total Creatine Kinase 22 L Total Protein Albumin HDL Cholesterol Ur Specific [place] 1.037 H Urine Protein Trace H Ur Leukocyte Esterase Trace H Urine Bacteria Rare H Urine Mucus Rare H 05/25/18 05/25/18 05/25/18 08:10 08:10 16:13 WBC RBC Hgb Hct MCHC RDW Plt Count Neutrophils # Lymphocytes # Monocytes # PT 14.6 H INR 1.6 H Sodium Potassium 5.2 H BUN Glucose 132 H POC Glucose (mg/dL) 126 H Calcium 7.9 L Total Bilirubin 1.6 H Total Creatine Kinase Total Protein 5.5 L Albumin 2.6 L HDL Cholesterol Ur Specific [place] Urine Protein Ur Leukocyte Esterase Urine Bacteria Urine Mucus 05/26/18 05/26/18 03:36 03:36 WBC 15.9 H RBC 2.93 L Hgb 8.3 L Hct 27.5 L MCHC 30.3 L RDW 16.1 H Plt Count Neutrophils # 14.6 H Lymphocytes # 0.4 L Monocytes # PT INR Sodium 134 L Potassium 5.4 H BUN 25 H Glucose 148 H POC Glucose (mg/dL) Calcium 7.5 L Total Bilirubin Total Creatine Kinase Total Protein Albumin HDL Cholesterol Ur Specific [place] Urine Protein Ur Leukocyte Esterase Urine Bacteria Urine Mucus - Diagnostic Findings Chest x-ray: report reviewed, image reviewed Additional studies: EKG reviewed, CT of thoracic and abdominal aorta results reviewed, ultrasound of the gallbladder results reviewed Assessment and Plan Plan: Assessment: #1. Acute abdominal pain secondary to acute gangrenous cholecystitis, status post laparoscopic cholecystectomy, postop day 1 #2. Hypotension related to hypovolemia, possible sepsis, improved with fluid boluses, patient required some vasopressor support. Currently levofed is off #3. Leukocytosis related to the above #4. Recent history of thoracic aortic repair at [facility] #5. A. fib RVR versus questionable run of V. tach in the postoperative period, is on amiodarone drip, and currently is in A. fib with a controlled rate. #6. Chronic A. fib on Coumadin #7. Hypertension, hyperlipidemia, previous episode of myocardial infarction #8. Permanent pacemaker #9. Sleep apnea on CPAP #10. GERD/reflux Plan: Continue encouraging deep breathing and coughing, incentive spirometry use. Patient is doing well, no recurrence of V. tach, remains in A. fib with a controlled rate. Maintain pain control, cultures are pending, no ongoing fever or chills. Will remain on Zosyn. He is off the levo fed, and if he remains hemodynamically stable may transfer to general medical floor with remote telemetry later today. Continue GI and DVT prophylaxis. I performed a history & physical examination of the patient and discussed their management with my nurse practitioner, Lexie Sandhu. I reviewed the nurse practitioner's note and agree with the documented findings and plan of care. Lung sounds are clear. The findings and the impression was discussed with the patient. I attest to the documentation by the nurse practitioner. Critical care time is over 30 minutes Time with Patient: Greater than 30
--- NOTE | 2018-05-26 10:44 | P.PN ---
Subjective Progress Note Date: 05/26/18 Patient is doing well, off levo, pain is improved today, no acute events overnight. Objective - Vital Signs Vital signs: Vital Signs Temp 98.6 F 05/26/18 00:30 Pulse 87 05/26/18 09:00 Resp 18 05/26/18 09:00 BP 96/66 05/26/18 09:00 Pulse Ox 98 05/26/18 09:00 Intake & Output 05/25/18 05/26/18 05/26/18 18:59 06:59 18:59 Intake Total 2331 1544.50 862.157 Output Total 275 445 98 Balance 2056 1099.50 764.157 Weight 120 kg Intake: IV 2081 1150.0 700 Lactated Ringers 1,000 ml 1100 100 @ 100 mls/hr IV .Q10H [facility] Rx#:[id number] Lactated Ringers 500 ml @ 500 999 mls/hr IV .Q31M [facility] Rx#:[id number] Piperacillin-Tazobactam 3 50.0 .375 gm In Dextrose/Water 1 50ml.bag @ 12.5 mls/hr IVPB Q8HR [facility] Rx#: [id number] Sodium Chloride 0.9% 1, 75 000 ml @ 75 mls/hr IV . [id number] [facility] Rx#:[id number] Sodium Chloride 0.9% 500 600 ml @ 999 mls/hr IV .Q31M [facility] Rx#:[id number] Intake, IV Titration 250 394.50 162.157 Amount Amiodarone 450 mg In 250 162.157 Dextrose 5% in Water 250 ml @ 1 MG/MIN 33.33 mls/ hr IV .Q7H31M [facility] Rx#: [id number] Lactated Ringers 1,000 ml 100 @ 100 mls/hr IV .Q10H [facility] Rx#:[id number] Norepinephrine 4 mg In 144.50 Sodium Chloride 0.9% 250 ml @ Titrate IV .Q0M [facility] Rx#:[id number] Sodium Chloride 0.9% 1, 150 000 ml @ 75 mls/hr IV . [id number] [facility] Rx#:[id number] Output: Drainage 40 65 Right Lower Abdomen 40 65 Urine 185 380 98 Estimated Blood Loss 50 Other: Voiding Method Indwelling Catheter Indwelling Catheter Indwelling Catheter - Constitutional General appearance: Present: cooperative - Respiratory Details: nonlabored - Cardiovascular Details: afib Heart rate: 90 - Gastrointestinal Gastrointestinal Comment(s): Soft/nondistended/nontender Incisions are CDI WARD drain with serosang output - Psychiatric Psychiatric: Present: A&O x's 3 - Labs CBC & Chem 7: 05/26/18 03:36 05/26/18 03:36 Labs: Abnormal Lab Results - Last 24 Hours (Table) 05/25/18 05/26/18 05/26/18 Range/Units 16:13 03:36 03:36 WBC 15.9 H (3.8-10.6) k/uL RBC 2.93 L (4.30-5.90) m/uL Hgb 8.3 L (13.0-17.5) gm/dL Hct 27.5 L (39.0-53.0) % MCHC 30.3 L (31.0-37.0) g/dL RDW 16.1 H (11.5-15.5) % Neutrophils # 14.6 H (1.3-7.7) k/uL Lymphocytes # 0.4 L (1.0-4.8) k/uL Sodium 134 L (137-145) mmol/L Potassium 5.4 H (3.5-5.1) mmol/L BUN 25 H (9-20) mg/dL Glucose 148 H (74-99) mg/dL POC Glucose (mg/dL) 126 H (75-99) mg/dL Calcium 7.5 L (8.4-10.2) mg/dL Microbiology - Last 24 Hours (Table) 05/25/18 14:30 Anaerobic Culture - Preliminary Gallbladder Fluid 05/25/18 14:30 Gram Stain - Preliminary Aspirate Body Fluid Culture - Preliminary Assessment and Plan Assessment: Acute gangrenous cholecystitis POD#1 Lap keisha Plan: Start clear liquid diet today as tolerated. Cont. IS and pulm toilet. ICU care per ICU team.
[2018-05-26 11:19] LABS: Albumin 2.3 g/dL (3.5-5.0); Total Bilirubin 1.2 mg/dL (0.2-1.3); Total Protein 5.1 g/dL (6.3-8.2)
--- NOTE | 2018-05-26 12:36 | CDI ---
Last Revision, August 2017 Documentation Clarification Form Date: 05/26/2018 12:18:51 PM From: Ltaasha Noel RN, CCDS Admit Date: 05/24/2018 2:55:00 PM Patient Name: Gerardo Castillo Visit Number: [id number] ATTENTION: The Clinical Documentation Specialists (CDI) and [facility] Coding Staff appreciate your assistance in clarifying documentation. Please respond to the clarification below the line at the bottom and electronically sign. The CDI & [facility] Coding staff will review the response and follow-up if needed. Please note: Queries are made part of the Legal Health Record. If you have any questions, please contact the author of this message via ITS. Mu Arriaza MD A diagnosis of anemia lacks specificity to accurately reflect your patients severity of condition and clarification is needed. History/Risk Factors: 05/24 H&P: "Anemia, post recent surgery (s/p ascending aortic dissection repair). " Clinical indicators: 05/25 Attending Progress Note: "Anemia" S/P Roly Fisher this admission Hemoglobin: 9/9.6/8.3 Hematocrit: 28.5/31.9/27.5 Treatment: Monitoring labs Patient was type and crossed pre-op 2 doses of Vitamin K IVPB IV Bolus Po Coumadin In order to capture the severity of condition, please clarify the type of anemia and etiology if known: Acute blood loss anemia Acute on chronic blood loss anemia Chronic blood loss anemia Iron deficiency anemia Drug induced anemia Nutritional anemia Anemia of chronic disease Unable to determine Other, please specify Please continue to document in your progress notes and discharge summary in order to capture severity of illness and risk of mortality. Include clinical findings that support your diagnosis. MTDD
--- NOTE | 2018-05-26 12:43 | P.PN ---
Subjective Patient still has some right sided abdominal discomfort but otherwise is stable sitting up in a chair answering all questions. No chest pain no shortness of breath Blood pressure low normal 90 00 59 mmHg pulse rate in the 70s, atrial fibrillation line breath sounds are reduced bilaterally Heart sounds are irregular Impression History of atrial fibrillation status post multiple ablations in [place], remains in A. fib history of surgery on aortic aneurysm recently [facility] Inflamed gallbladder He has a past history of ventricular tachycardia From a cardiac standpoint I'll continue his current cardiac medications Switched to oral amiodarone once he can take orally, continue beta blockers Objective - Vital Signs Vital signs: Vital Signs Temp 97.9 F 05/26/18 12:00 Pulse 78 05/26/18 12:00 Resp 20 05/26/18 12:00 BP 82/54 05/26/18 12:00 Pulse Ox 95 05/26/18 12:00 Intake & Output 05/25/18 05/26/18 05/26/18 18:59 06:59 18:59 Intake Total 2331 1544.50 1432.157 Output Total 275 445 210 Balance 2056 1099.50 1222.157 Weight 120 kg Intake: IV 2081 1150.0 1150 Lactated Ringers 1,000 ml 1100 100 @ 100 mls/hr IV .Q10H [facility] Rx#:[id number] Lactated Ringers 500 ml @ 500 999 mls/hr IV .Q31M [facility] Rx#:[id number] Piperacillin-Tazobactam 3 50.0 50 .375 gm In Dextrose/Water 1 50ml.bag @ 12.5 mls/hr IVPB Q8HR [facility] Rx#: [id number] Sodium Chloride 0.9% 1, 300 000 ml @ 100 mls/hr IV . Q10H [facility] Rx#:[id number] Sodium Chloride 0.9% 1, 75 000 ml @ 75 mls/hr IV . [id number] [facility] Rx#:[id number] Sodium Chloride 0.9% 500 700 ml @ 999 mls/hr IV .Q31M [facility] Rx#:[id number] Intake, IV Titration 250 394.50 162.157 Amount Amiodarone 450 mg In 250 162.157 Dextrose 5% in Water 250 ml @ 1 MG/MIN 33.33 mls/ hr IV .Q7H31M [facility] Rx#: [id number] Lactated Ringers 1,000 ml 100 @ 100 mls/hr IV .Q10H [facility] Rx#:[id number] Norepinephrine 4 mg In 144.50 Sodium Chloride 0.9% 250 ml @ Titrate IV .Q0M [facility] Rx#:[id number] Sodium Chloride 0.9% 1, 150 000 ml @ 75 mls/hr IV . [id number] [facility] Rx#:[id number] Oral 120 Output: Drainage 40 65 Right Lower Abdomen 40 65 Urine 185 380 210 Estimated Blood Loss 50 Other: Voiding Method Indwelling Catheter Indwelling Catheter Indwelling Catheter - Labs CBC & Chem 7: 05/26/18 03:36 05/26/18 03:36 Labs: Abnormal Lab Results - Last 24 Hours (Table) 05/25/18 05/26/18 05/26/18 Range/Units 16:13 03:36 03:36 WBC 15.9 H (3.8-10.6) k/uL RBC 2.93 L (4.30-5.90) m/uL Hgb 8.3 L (13.0-17.5) gm/dL Hct 27.5 L (39.0-53.0) % MCHC 30.3 L (31.0-37.0) g/dL RDW 16.1 H (11.5-15.5) % Neutrophils # 14.6 H (1.3-7.7) k/uL Lymphocytes # 0.4 L (1.0-4.8) k/uL Sodium 134 L (137-145) mmol/L Potassium 5.4 H (3.5-5.1) mmol/L BUN 25 H (9-20) mg/dL Glucose 148 H (74-99) mg/dL POC Glucose (mg/dL) 126 H (75-99) mg/dL Calcium 7.5 L (8.4-10.2) mg/dL Total Protein 5.1 L (6.3-8.2) g/dL Albumin 2.3 L (3.5-5.0) g/dL Microbiology - Last 24 Hours (Table) 05/25/18 14:30 Anaerobic Culture - Preliminary Gallbladder Fluid 05/25/18 14:30 Gram Stain - Preliminary Aspirate Body Fluid Culture - Preliminary
--- NOTE | 2018-05-26 12:57 | CDI ---
Last Revision, August 2017 Documentation Clarification Form Date: 05/26/2018 12:39:23 PM From: Latasha Noel RN, CCDS Admit Date: 05/24/2018 2:55:00 PM Patient Name: Gerardo Castillo Visit Number: [id number] ATTENTION: The Clinical Documentation Specialists (CDI) and [facility] Coding Staff appreciate your assistance in clarifying documentation. Please respond to the clarification below the line at the bottom and electronically sign. The CDI & [facility] Coding staff will review the response and follow-up if needed. Please note: Queries are made part of the Legal Health Record. If you have any questions, please contact the author of this message via ITS. Genesis Coreas MD History/Risk Factors: ischemic cardiomyopathy, cad, mi, aaa dissection, chronic atrial fib, HTN Clinical Indicators: 05/25 Cardiology Consult: "Patient also seemed to be in congestive heart failure with mild JVD." Current VS/Pulse OX: temp 98.6, hr 79, rr 20, b/p 91/60, spo2 95% 4L NC BNP: not checked Echocardiogram Results: no previous results available. 05/26 Chest X Ray: "Correlate for possible pulmonary venous hypertension and interstitial edema." Treatment: Coreg 25 mg PO BID Lasix 20 mg Po QD Toprol XL 25 mg PO BID 1.5 L IVF Bolus followed by 100 cc/hr In your professional opinion, can you please clarify the acuity and type of CHF if known? Systolic Heart Failure: Acute Chronic Acute on Chronic Diastolic Heart Failure: Acute Chronic Acute on Chronic Systolic & Diastolic Heart Failure: Acute Chronic Acute on Chronic Heart Failure Unable to Determine Other, please specify Please continue to document in your progress notes and discharge summary in order to capture severity of illness and risk of mortality. Include clinical findings that support your diagnosis. Patient has acute on chronic diastolic CHF MTDD
--- NOTE | 2018-05-26 13:21 | CDI ---
Last Revision, August 2017 Documentation Clarification Form Date: 05/26/2018 12:59:46 PM From: Latasha Noel RN, CCDS Admit Date: 05/24/2018 2:55:00 PM Patient Name: Gerardo Csatillo Visit Number: [id number] ATTENTION: The Clinical Documentation Specialists (CDI) and [facility] Coding Staff appreciate your assistance in clarifying documentation. Please respond to the clarification below the line at the bottom and electronically sign. The CDI & [facility] Coding staff will review the response and follow-up if needed. Please note: Queries are made part of the Legal Health Record. If you have any questions, please contact the author of this message via ITS. Darrell Garduno, DO Hypotension due to Hypovolemic is documented and requires further specificity. Patient history/risk factors: Gangrenous cholecystitis s/p lap choley, atrial Fib RVR, HTN, Hx of MT, PPM, ischemic cardiomyopathy Clinical Indicators: 05/26 Pulmonary Consult: "Hypotension related to hypovolemia, possible sepsis, improved with fluid boluses, patient required some vasopressor support. Currently levophed is off." 05/25 @ 1520 Vitals: Temp 98.3 HR 73 RR 20, B/P 86/50, Spo2 97% on simple mask Treatment: 500 cc bolus LR 1.5 L 0.9% NS bolus followed by 100 cc/hr Romeo -synephrine changed to Levophed titrate for B/P In your professional opinion, can you please specify the type of shock if known ? Septic Shock Suspected or known causative organism Any associated organ failure Cardiogenic Shock Cause Hypovolemic Shock Cause Other, please specify Unable to determine Please continue to document in your progress notes and discharge summary in order to capture severity of illness and risk of mortality. Include clinical findings that support your diagnosis. Hypotension, likely related to sepsis MTDD
[2018-05-26] MEDS: PANTOPRAZOLE 40 MG/10 ML VIAL IVP SCH ×2 (16:02→20:33)
[2018-05-26] MEDS ORDERED: WARFARIN 7.5 MG TAB PO ONE (18:00)
[2018-05-26] MEDS: ONDANSETRON 4 MG/2 ML VIAL IVP PRN (18:48)
[2018-05-26] MEDS: clonazePAM 1 MG TAB PO SCH (20:33)
[2018-05-26] MEDS: DOXAZOSIN 2 MG TAB PO SCH (20:33)
[2018-05-26] MEDS: ATORVASTATIN 40 MG TAB PO SCH (20:33)
[2018-05-26] MEDS: LOSARTAN 50 MG TAB PO SCH (20:33)
[2018-05-26] MEDS: ALLOPURINOL 300 MG TAB PO SCH (20:39)
[2018-05-27] MEDS: PIPERACILLIN-TAZOBACTAM 3.375 GM in DEXTROSE/WATER 1 50ML.BAG IVPB SCH ×4 (00:42→23:41)
[2018-05-27] MEDS: SODIUM CHLORIDE 0.9% 1,000 ML IV SCH (00:43)
[2018-05-27 05:07] LABS: Anisocytosis Slight; Basophils % (A) 0 %; Eosinophils % (A) 0 %; HCT 25.1 % (39.0-53.0); HGB 7.6 gm/dL (13.0-17.5); Hypochromasia Marked; INR 1.1 (<1.2); Lymphocytes # (A) 0.4 k/uL (1.0-4.8); Lymphocytes % (A) 5 %; MCHC 30.2 g/dL (31.0-37.0); MCV 96.1 fL (80.0-100.0); Mean Platelet Volume 7.9; Monocytes # (A) 0.4 k/uL (0-1.0); Monocytes % (A) 5 %; Neutrophils # (A) 6.8 k/uL (1.3-7.7); Neutrophils % (A) 89 %; Platelet Count 138 k/uL (150-450); Poikilocytosis Slight; Prothrombin Time 10.9 sec (9.0-12.0); RBC 2.61 m/uL (4.30-5.90); RDW 16.2 % (11.5-15.5); WBC 7.6 k/uL (3.8-10.6)
[2018-05-27 05:35] LABS: Calcium 7.4 mg/dL (8.4-10.2); Magnesium 2.1 mg/dL (1.6-2.3); Phosphorus 3.1 mg/dL (2.5-4.5); Potassium 4.3 mmol/L (3.5-5.1)
--- NOTE | 2018-05-27 08:26 | XR ---
EXAMINATION TYPE: XR chest 1V portable DATE OF EXAM: 05/27/2018 COMPARISON: 05/26/2018 HISTORY: Shortness of breath TECHNIQUE: Single frontal view of the chest is obtained. FINDINGS: Postsurgical change, cardiac device, cardiomegaly, bilateral infiltrate and pleural effusi on stable. There is be aneurysmal dilation of the thoracic aorta measuring approximately 5.0 cm. Redu bonnie inspiration noted. No pneumothorax. Arthropathy of the shoulders noted. IMPRESSION: 1. Stable bilateral consolidation and pleural effusion. 2. Findings suggest a thoracic aortic aneurysm measuring approximately 5 cm.
--- NOTE | 2018-05-27 08:56 | P.PN ---
Subjective Progress Note Date: 05/27/18 Principal diagnosis: Acute abdominal pain, acute gangrenous cholecystitis, septic shock This is 78-year-old white male patient of Dr. Infante, who presented to the emergency department on 05/24/2018 with acute abdominal pain, nausea, vomiting. Patient had a recent repair of his thoracic aorta at the [facility], [place] angios of thoracic and abdominal aorta was negative for any evidence of dissection. Ultrasound of the abdomen sludge containing thick-walled gallbladder, and mild hepatomegaly. Initial blood work showed WBC of 7.1, hemoglobin is 9.0, platelet count is 146, INR is 1.2, sodium is 134, the rest of the electrolytes were within normal limits, lactic acid was 1.4, troponins were negative, albumin was 2.8, LFTs were unremarkable, amylase and lipase were within normal limits. Urinalysis was positive for just trace leuks, and rare bacteria. Surgical consultation was placed, the patient was recommended to undergo laparoscopic cholecystectomy, and today were seen patient in the intensive care unit and it is postoperative day 1. Patient is awake, and alert , his pain is reasonably controlled, only having discomfort with moving, and occasionally with coughing. Pulse ox on 4 L per nasal cannula was 96%, he is afebrile, he is in atrial fibrillation, and patient is chronic A. fib on chronic anticoagulation with Coumadin. In the postoperative period there was questionable run of V. tach, patient was placed on amiodarone drip, which is currently infusing at a rate of 0.5 mg per min. maintenance IV fluids is 0.9 normal saline at 100 ML per hour. Patient had received 500 mL fluid bolus for hypotension in the postoperative period, levo fed is off. He is not tachycardic , heart rate is controlled, 60 and 70 BPM. He is producing urine in the order of 30-35 ML per hour. Lung sounds are clear, no rhonchi, no wheezes. He is pulling 1200 on the incentive spirometry today. He remains on Zosyn, gallbladder fluid Gram stain and culture is pending. No fever, no chills. He is nothing by mouth except for ice chips. Past medical history is positive for A. fib and patient has a permanent pacemaker, hypertension, hyperlipidemia, previous myocardial infarction, Paget's disease, thoracic aortic aneurysm as mentioned above, BPH. On 05/27/2018 patient seen again in follow-up in the intensive care unit. He is awake and alert, he is off vasopressor support, no further episodes of arrhythmia, remains in A. fib with a controlled rate, he remains on amiodarone at 0.5 mg/m. IV 0.9 normal saline at a rate of 20 ML per hour. He is up in the chair, denies any distress, no chest pain, mildly short of breath at times especially with exertion. His incisional pain on his abdomen is reasonably controlled. He is compliant with his incentive spirometry, he is able to achieve 750 on it today. Lung sounds are positive for diminished breath sounds with some limited crackles at the bases. Oxygenation is stable, currently is on 1/2 L per nasal cannula, his pulse ox is 93%, he is afebrile. Bowel sounds are active, there is small amount of thin brownish drainage from the WARD drain in his right abdomen, abdomen is soft, patient did have a loose bowel movement last night, today's labs were reviewed, leukocytosis has completely resolved, diabetes he is 7.6, hemoglobin is 7.6. Serum sodium is 133, potassium is 4.3, B1 is 27, creatinine is 1.04. Patient is tolerating clear liquid diet, no nausea, no vomiting. Remains stable, doing well, gallbladder fluid cultures are still pending. Patient is covered with IV Zosyn. Objective - Vital Signs Vital signs: Vital Signs Temp 97.7 F 05/27/18 04:30 Pulse 88 05/27/18 07:00 Resp 18 05/27/18 07:00 BP 102/69 05/27/18 07:00 Pulse Ox 94 L 05/27/18 07:00 Intake & Output 05/26/18 05/27/18 05/27/18 18:59 06:59 18:59 Intake Total 3382.157 585 20 Output Total 493 495 30 Balance 2889.157 90 -10 Intake: IV 1900 540 20 Lactated Ringers 1,000 ml 100 @ 100 mls/hr IV .Q10H [facility] Rx#:[id number] Piperacillin-Tazobactam 3 100 .375 gm In Dextrose/Water 1 50ml.bag @ 12.5 mls/hr IVPB Q8HR [facility] Rx#: [id number] Sodium Chloride 0.9% 1, 1000 540 20 000 ml @ 100 mls/hr IV . Q10H [facility] Rx#:[id number] Sodium Chloride 0.9% 500 700 ml @ 999 mls/hr IV .Q31M [facility] Rx#:[id number] Intake, IV Titration 162.157 45 Amount Amiodarone 450 mg In 162.157 Dextrose 5% in Water 250 ml @ 1 MG/MIN 33.33 mls/ hr IV .Q7H31M [facility] Rx#: [id number] Norepinephrine 4 mg In 0 45 Sodium Chloride 0.9% 250 ml @ Titrate IV .Q0M [facility] Rx#:[id number] Oral 1320 Output: Drainage 40 Right Lower Abdomen 40 Urine 453 455 30 Emesis 40 Other: Voiding Method Indwelling Catheter Indwelling Catheter # Bowel Movements 1 - Exam GENERAL EXAM: Alert, pleasant, 78-year-old white male, seen in the intensive care unit, currently on 1.5 L per nasal cannula comfortable in no apparent distress. HEAD: Normocephalic/atraumatic. EYES: Normal reaction of pupils, equal size. Conjunctiva pink, sclera white. NOSE: Clear with pink turbinates. THROAT: No erythema or exudates. NECK: No masses, no JVD, no thyroid enlargement, no adenopathy. CHEST: No chest wall deformity. Symmetrical expansion. LUNGS: Equal air entry with no crackles, wheeze, rhonchi or dullness. CVS: Irregular rate and rhythm, normal S1 and S2, no gallops, no murmurs, no rubs ABDOMEN: Soft, nontender. No hepatosplenomegaly, normal bowel sounds, no guarding or rigidity. Abdominal laparoscopic incisions are clean dry and intact , there is a WARD drain in the right upper abdomen, with thin brownish output, bowel sounds are hypoactive EXTREMITIES: No clubbing, no edema, no cyanosis, 2+ pulses and upper and lower extremities. MUSCULOSKELETAL: Muscle strength and tone normal. SPINE: No scoliosis or deformity SKIN: No rashes CENTRAL NERVOUS SYSTEM: Alert and oriented -3. No focal deficits, tone is normal in all 4 extremities. PSYCHIATRIC: Alert and oriented -3. Appropriate affect. Intact judgment and insight - Labs CBC & Chem 7: 05/27/18 04:27 05/27/18 04:27 Labs: Abnormal Lab Results - Last 24 Hours (Table) 05/26/18 05/27/18 05/27/18 Range/Units 03:36 04:27 04:27 RBC 2.61 L (4.30-5.90) m/uL Hgb 7.6 L (13.0-17.5) gm/dL Hct 25.1 L (39.0-53.0) % MCHC 30.2 L (31.0-37.0) g/dL RDW 16.2 H (11.5-15.5) % Plt Count 138 L (150-450) k/uL Lymphocytes # 0.4 L (1.0-4.8) k/uL Sodium 134 L 133 L (137-145) mmol/L Potassium 5.4 H (3.5-5.1) mmol/L BUN 25 H 27 H (9-20) mg/dL Glucose 148 H 126 H (74-99) mg/dL Calcium 7.5 L 7.4 L (8.4-10.2) mg/dL Total Protein 5.1 L (6.3-8.2) g/dL Albumin 2.3 L (3.5-5.0) g/dL Microbiology - Last 24 Hours (Table) 05/25/18 14:30 Gram Stain - Preliminary Aspirate Body Fluid Culture - Preliminary 05/25/18 14:30 Anaerobic Culture - Preliminary Gallbladder Fluid Assessment and Plan Plan: Assessment: #1. Acute abdominal pain secondary to acute gangrenous cholecystitis, status post laparoscopic cholecystectomy, postop day 1 #2. Hypotension related to hypovolemia, possible sepsis, improved with fluid boluses, patient required some vasopressor support. Currently levofed is off #3. Leukocytosis related to the above #4. Recent history of thoracic aortic repair at [facility] #5. A. fib RVR versus questionable run of V. tach in the postoperative period, is on amiodarone drip, and currently is in A. fib with a controlled rate. #6. Chronic A. fib on Coumadin #7. Hypertension, hyperlipidemia, previous episode of myocardial infarction #8. Permanent pacemaker #9. Sleep apnea on CPAP #10. GERD/reflux Plan: Encourage deep breathing and coughing, incentive spirometry. Patient remains stable, no recurrence of arrhythmias, his A. fib is controlled, and his Coumadin has been resumed, will check with cardiology if his IV amiodarone can be switched to oral. His pain is reasonably controlled. No acute issues overnight. Increase activity as tolerated. Patient is stable for transfer out of the intensive care unit today probably to selective. We'll continue to follow. I performed a history & physical examination of the patient and discussed their management with my nurse practitioner, Lexie Sandhu. I reviewed the nurse practitioner's note and agree with the documented findings and plan of care. Lung sounds are clear. The findings and the impression was discussed with the patient. I attest to the documentation by the nurse practitioner. Critical care time is over 30 minutes Time with Patient: Greater than 30
--- NOTE | 2018-05-27 09:04 | PN ---
PROGRESS NOTE CHIEF COMPLAINT: Re-evaluation. HISTORY OF PRESENT ILLNESS: This is a 78-year-old gentleman who was admitted to the hospital with abdominal pain. The patient had acute cholecystitis and underwent cholecystectomy. Doing well. Prior to the episode, the patient had a run of V. tach and atrial fibrillation, rapid ventricular rate, felt to be suspicious secondary to the septic process. He is feeling much better today and looks a lot better. 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 He does have a history of chronic atrial fibrillation on anticoagulation. The patient was given vitamin K yesterday prior to surgery. He is on Zosyn. He is also on amiodarone. REVIEW OF SYSTEMS: NEURO: Denies any headaches, dizziness. PSYCH: No anxiety. CARDIAC: No chest pain, angina, palpitation. RESPIRATORY: Denies shortness of breath, cough. GI: No nausea, vomiting, abdominal pain, diarrhea. : No symptoms hematuria. EXTREMITIES: No pain. CONSTITUTIONAL: No fever, chills. PHYSICAL EXAMINATION: Pleasant gentleman in no distress. Vital signs reveals the patient is afebrile, pulse 85, regular, respirations of 21, blood pressure 97/63, pulse ox 95%. He was given a bolus of 5 mL normal saline. HEENT: Normocephalic. NECK: No JVD. CHEST: Clear to auscultation with decreased air flow left base. CARDIAC: Normal S1, S2 with no gallops. Irregular rhythm. Systolic murmur 2/6 left sternal border. ABDOMEN: Mildly tender. Bowel sounds active. Extremities reveal no edema. No tenderness. Neurologically awake, alert, oriented with well-coordinated movements. LABORATORY ASSESSMENT: White count 15.9, hemoglobin 8.3, platelets 161, sodium 134, potassium 5.4, BUN feet 25, creatinine 0.99. Random glucose 148. ASSESSMENT: 1. Acute cholecystitis, status post surgery. 2. Episode of ventricular tachycardia. 3. History of chronic atrial fibrillation. 4. Anticoagulated status. 5. Status post ascending aorta dissection repair. 6. Anemia, secondary to acute blood loss. PLAN: The patient is stable. Continue present medical regimen. Patient's condition discussed with the patient. MMODL / IJN: [id number] /
[2018-05-27] MEDS: ASPIRIN 81 MG PO SCH (09:16)
[2018-05-27] MEDS: PANTOPRAZOLE 40 MG/10 ML VIAL IVP SCH ×2 (09:17→20:40)
[2018-05-27] MEDS: MAGNESIUM OXIDE 400 MG TAB PO SCH ×2 (09:17→17:37)
--- NOTE | 2018-05-27 11:03 | P.PN ---
Subjective Progress Note Date: 05/27/18 Patient is doing well, sitting up in chair using IS, tolerating clears Objective - Vital Signs Vital signs: Vital Signs Temp 97.7 F 05/27/18 04:30 Pulse 88 05/27/18 07:00 Resp 18 05/27/18 07:00 BP 102/69 05/27/18 07:00 Pulse Ox 94 L 05/27/18 07:00 Intake & Output 05/26/18 05/27/18 05/27/18 18:59 06:59 18:59 Intake Total 3382.157 585 20 Output Total 493 495 30 Balance 2889.157 90 -10 Intake: IV 1900 540 20 Lactated Ringers 1,000 ml 100 @ 100 mls/hr IV .Q10H [facility] Rx#:[id number] Piperacillin-Tazobactam 3 100 .375 gm In Dextrose/Water 1 50ml.bag @ 12.5 mls/hr IVPB Q8HR [facility] Rx#: [id number] Sodium Chloride 0.9% 1, 1000 540 20 000 ml @ 100 mls/hr IV . Q10H [facility] Rx#:[id number] Sodium Chloride 0.9% 500 700 ml @ 999 mls/hr IV .Q31M [facility] Rx#:[id number] Intake, IV Titration 162.157 45 Amount Amiodarone 450 mg In 162.157 Dextrose 5% in Water 250 ml @ 1 MG/MIN 33.33 mls/ hr IV .Q7H31M [facility] Rx#: [id number] Norepinephrine 4 mg In 0 45 Sodium Chloride 0.9% 250 ml @ Titrate IV .Q0M [facility] Rx#:[id number] Oral 1320 Output: Drainage 40 Right Lower Abdomen 40 Urine 453 455 30 Emesis 40 Other: Voiding Method Indwelling Catheter Indwelling Catheter # Bowel Movements 1 - Constitutional General appearance: Present: cooperative - Respiratory Details: nonlabored - Cardiovascular Details: afib - Gastrointestinal Gastrointestinal Comment(s): Soft/nondistended/non tender, incisions C/D/I, WARD serosang - Psychiatric Psychiatric: Present: A&O x's 3 - Labs CBC & Chem 7: 05/27/18 04:27 05/27/18 04:27 Labs: Abnormal Lab Results - Last 24 Hours (Table) 05/26/18 05/27/18 05/27/18 Range/Units 03:36 04:27 04:27 RBC 2.61 L (4.30-5.90) m/uL Hgb 7.6 L (13.0-17.5) gm/dL Hct 25.1 L (39.0-53.0) % MCHC 30.2 L (31.0-37.0) g/dL RDW 16.2 H (11.5-15.5) % Plt Count 138 L (150-450) k/uL Lymphocytes # 0.4 L (1.0-4.8) k/uL Sodium 133 L (137-145) mmol/L BUN 27 H (9-20) mg/dL Glucose 126 H (74-99) mg/dL Calcium 7.4 L (8.4-10.2) mg/dL Total Protein 5.1 L (6.3-8.2) g/dL Albumin 2.3 L (3.5-5.0) g/dL Microbiology - Last 24 Hours (Table) 05/25/18 14:30 Gram Stain - Preliminary Aspirate Body Fluid Culture - Preliminary Assessment and Plan Assessment: Acute gangrenous cholecystitis POD#2 Lap keisha Plan: Advance diet as tolerated to low fat. Cont. IS and pulm toilet. Ok to transfer out of ICU from surgical standpoint
[2018-05-27] MEDS: METOPROLOL SUCCINATE (ER) 25 MG TAB.ER.24H PO SCH ×2 (11:33→20:41)
[2018-05-27] MEDS: ACETAMINOPHEN TAB 325 MG TAB PO PRN (11:43)
[2018-05-27] MEDS: AMIODARONE 450 MG in DEXTROSE 5% IN WATER 250 ML IV SCH ×2 (12:56)
--- NOTE | 2018-05-27 13:56 | PN ---
PROGRESS NOTE CHIEF COMPLAINT: Re-evaluation. HISTORY OF PRESENT ILLNESS: This is a 78-year-old gentleman who was admitted to the hospital because of nausea, vomiting, and abdominal pain. The patient initially did complain of upper abdominal pain and lower abdominal pain. The patient, however, subsequent next day did localize the pain to the right upper quadrant, associated with leukocytosis. The patient also had atrial fibrillation, rapid ventricular rate and ventricular tachycardia. Patient was placed on amiodarone. The patient subsequently underwent laparoscopic cholecystectomy with a gangrenous gallbladder was noted. The patient is feeling much better today. His heart rhythm is better. His blood pressure is in the 90s. REVIEW OF SYSTEMS: NEURO: Denies any headaches, dizziness. PSYCH: No anxiety. CARDIAC: No chest pain, angina, palpitation. RESPIRATORY: No shortness of breath, cough, hemoptysis. GI: Had some nausea, vomiting last night. Did have a bowel movement. No diarrhea. GI: No symptoms of hematuria, dysuria. EXTREMITIES: Denies pain, edema. CONSTITUTIONAL: No fever, chills. PHYSICAL EXAMINATION: Pleasant gentleman at present. No distress. Vital signs revealed the patient pulse rate 88, respirations 18, blood pressure 102/69, pulse ox of 94% on room air. Patient has been afebrile. HEENT: Normocephalic. NECK: No JVD. CHEST: Clear to auscultation with decreased air flow left base. CARDIAC: Normal S1, S2 with no gallops. Systolic murmur 2/6 left sternal border, irregular rhythm. ABDOMEN: Soft. Bowel sounds active. EXTREMITIES: Reveal no edema. No tenderness. Neurologically awake, alert, oriented with well-coordinated movements. LABORATORY ASSESSMENT: White count 7.6, hemoglobin 7.6, sodium 133, BUN of 27, creatinine 1.04. Glucose 126. ASSESSMENT: 1. Anemia secondary to acute on chronic blood loss. 2. Status post cholecystectomy. 3. Recent ascending aortic dissection repair. 4. Atrial fibrillation, rapid ventricular rate, controlled. 5. Ventricular tachycardia, none now. PLAN: Continue present medical regimen. Patient's condition is improving. We will resume patient's Coumadin at 7.5 mg daily. Check pro times daily. The patient was given a good dose of vitamin K 10 mg, so it may take a lot longer to get back up to the therapeutic range. Patient's condition is discussed with the patient, prognosis is guarded. He understands that I will not be in for the next few days and Dr. Vo is going to be covering for me. The patient condition is guarded. MMODL / IJN: [id number] /
[2018-05-27 16:46] VITALS: RESP 18
[2018-05-27] MEDS: ONDANSETRON 4 MG/2 ML VIAL IVP PRN (17:42)
[2018-05-27] MEDS ORDERED: WARFARIN 7.5 MG TAB PO SCH (18:00)
[2018-05-27] MEDS ORDERED: WARFARIN 7.5 MG TAB PO ONE ×2 (18:00)
[2018-05-27] MEDS ORDERED: WARFARIN 5 MG TAB PO SCH (18:00)
[2018-05-27] MEDS: WARFARIN 7.5 MG TAB PO SCH (18:18)
[2018-05-27] MEDS: ATORVASTATIN 40 MG TAB PO SCH (20:40)
[2018-05-27] MEDS: DOXAZOSIN 2 MG TAB PO SCH (20:40)
[2018-05-27] MEDS: ALLOPURINOL 300 MG TAB PO SCH (20:40)
[2018-05-27] MEDS: clonazePAM 1 MG TAB PO SCH (20:40)
[2018-05-28] MEDS: SODIUM CHLORIDE 0.9% 1,000 ML IV SCH ×2 (01:14→23:20)
[2018-05-28 06:31] LABS: Basophils % (A) 0 %; Eosinophils # (A) 0.1 k/uL (0-0.7); Eosinophils % (A) 2 %; HCT 26.1 % (39.0-53.0); HGB 7.8 gm/dL (13.0-17.5); Hypochromasia Marked; Lymphocytes # (A) 0.6 k/uL (1.0-4.8); Lymphocytes % (A) 11 %; MCV 96.6 fL (80.0-100.0); Mean Platelet Volume 7.4; Monocytes # (A) 0.4 k/uL (0-1.0); Monocytes % (A) 7 %; Neutrophils # (A) 4.7 k/uL (1.3-7.7); Neutrophils % (A) 79 %; Platelet Count 152 k/uL (150-450); Poikilocytosis Slight; RDW 15.8 % (11.5-15.5)
[2018-05-28 06:35] LABS: INR 1.2 (<1.2); Prothrombin Time 11.1 sec (9.0-12.0)
[2018-05-28 06:41] LABS: Albumin 2.2 g/dL (3.5-5.0); Calcium 7.5 mg/dL (8.4-10.2); Phosphorus 2.4 mg/dL (2.5-4.5); Potassium 3.9 mmol/L (3.5-5.1); Total Bilirubin 0.5 mg/dL (0.2-1.3); Total Protein 4.9 g/dL (6.3-8.2)
[2018-05-28] MEDS: MAGNESIUM OXIDE 400 MG TAB PO SCH ×2 (06:43→15:59)
[2018-05-28] MEDS: PIPERACILLIN-TAZOBACTAM 3.375 GM in DEXTROSE/WATER 1 50ML.BAG IVPB SCH ×3 (09:14→23:15)
[2018-05-28] MEDS: PANTOPRAZOLE 40 MG/10 ML VIAL IVP SCH ×2 (09:14→20:38)
[2018-05-28] MEDS: ASPIRIN 81 MG PO SCH (09:15)
[2018-05-28] MEDS: METOPROLOL SUCCINATE (ER) 25 MG TAB.ER.24H PO SCH ×2 (09:15→20:38)
--- NOTE | 2018-05-28 10:11 | P.PN ---
Subjective Progress Note Date: 05/28/18 Patient seen and examined at bedside. Doing well. States abdominal pain is improving. Denies any nausea and vomiting. States he is not having an appetite and food is not taste good. He is only ambulating to the bathroom. WARD drain with serosanguineous output. Using incentive spirometry. Objective - Vital Signs Vital signs: Vital Signs Temp 97.8 F 05/28/18 04:00 Pulse 78 05/28/18 04:00 Resp 18 05/28/18 04:00 BP 95/58 05/28/18 04:00 Pulse Ox 94 L 05/28/18 04:00 Intake & Output 05/27/18 05/28/18 05/28/18 18:59 06:59 18:59 Intake Total 500 50 Output Total 225 85 Balance 275 -35 Weight 124.5 kg 124.5 kg Intake: IV 150 50 Piperacillin-Tazobactam 3 50 50 .375 gm In Dextrose/Water 1 50ml.bag @ 12.5 mls/hr IVPB Q8HR [facility] Rx#: [id number] Sodium Chloride 0.9% 1, 100 000 ml @ 100 mls/hr IV . Q10H [facility] Rx#:[id number] Oral 350 Output: Drainage 50 85 Right Lower Abdomen 50 85 Urine 175 Other: Voiding Method Indwelling Catheter # Voids 4 # Bowel Movements 5 - Constitutional General appearance: Present: cooperative, no acute distress - Respiratory Details: No difficulty with respiration - Gastrointestinal Gastrointestinal Comment(s): Soft, appropriate tenderness, nondistended, no rebound, no guarding, incision sites are clean, dry and intact, WARD drain in place with serosanguineous output - Musculoskeletal Musculoskeletal: Present: generalized weakness - Psychiatric Psychiatric: Present: A&O x's 3 - Labs CBC & Chem 7: 05/28/18 06:08 05/28/18 06:08 Labs: Abnormal Lab Results - Last 24 Hours (Table) 05/28/18 05/28/18 05/28/18 Range/Units 06:08 06:08 06:08 RBC 2.70 L (4.30-5.90) m/uL Hgb 7.8 L (13.0-17.5) gm/dL Hct 26.1 L (39.0-53.0) % MCHC 30.0 L (31.0-37.0) g/dL RDW 15.8 H (11.5-15.5) % Lymphocytes # 0.6 L (1.0-4.8) k/uL INR 1.2 H (<1.2) Sodium 134 L (137-145) mmol/L BUN 27 H (9-20) mg/dL Glucose 100 H (74-99) mg/dL Calcium 7.5 L (8.4-10.2) mg/dL Phosphorus 2.4 L (2.5-4.5) mg/dL Total Protein 4.9 L (6.3-8.2) g/dL Albumin 2.2 L (3.5-5.0) g/dL Microbiology - Last 24 Hours (Table) 05/25/18 14:30 Anaerobic Culture - Preliminary Gallbladder Fluid 05/25/18 14:30 Gram Stain - Preliminary Aspirate Body Fluid Culture - Preliminary Assessment and Plan Plan: 78-year-old male status post laparoscopic cholecystectomy - Tolerating a soft diet, continue diet - Discussed with nursing staff, patient to ambulate today with assistance - Remove WARD drain - Continue medical management
--- NOTE | 2018-05-28 11:27 | P.PN ---
Subjective Progress Note Date: 05/28/18 Principal diagnosis: Acute abdominal pain, acute gangrenous cholecystitis, septic shock This is 78-year-old white male patient of Dr. Infante, who presented to the emergency department on 05/24/2018 with acute abdominal pain, nausea, vomiting. Patient had a recent repair of his thoracic aorta at the [facility], [place] angios of thoracic and abdominal aorta was negative for any evidence of dissection. Ultrasound of the abdomen sludge containing thick-walled gallbladder, and mild hepatomegaly. Initial blood work showed WBC of 7.1, hemoglobin is 9.0, platelet count is 146, INR is 1.2, sodium is 134, the rest of the electrolytes were within normal limits, lactic acid was 1.4, troponins were negative, albumin was 2.8, LFTs were unremarkable, amylase and lipase were within normal limits. Urinalysis was positive for just trace leuks, and rare bacteria. Surgical consultation was placed, the patient was recommended to undergo laparoscopic cholecystectomy, and today were seen patient in the intensive care unit and it is postoperative day 1. Patient is awake, and alert , his pain is reasonably controlled, only having discomfort with moving, and occasionally with coughing. Pulse ox on 4 L per nasal cannula was 96%, he is afebrile, he is in atrial fibrillation, and patient is chronic A. fib on chronic anticoagulation with Coumadin. In the postoperative period there was questionable run of V. tach, patient was placed on amiodarone drip, which is currently infusing at a rate of 0.5 mg per min. maintenance IV fluids is 0.9 normal saline at 100 ML per hour. Patient had received 500 mL fluid bolus for hypotension in the postoperative period, levo fed is off. He is not tachycardic , heart rate is controlled, 60 and 70 BPM. He is producing urine in the order of 30-35 ML per hour. Lung sounds are clear, no rhonchi, no wheezes. He is pulling 1200 on the incentive spirometry today. He remains on Zosyn, gallbladder fluid Gram stain and culture is pending. No fever, no chills. He is nothing by mouth except for ice chips. Past medical history is positive for A. fib and patient has a permanent pacemaker, hypertension, hyperlipidemia, previous myocardial infarction, Paget's disease, thoracic aortic aneurysm as mentioned above, BPH. On 05/27/2018 patient seen again in follow-up in the intensive care unit. He is awake and alert, he is off vasopressor support, no further episodes of arrhythmia, remains in A. fib with a controlled rate, he remains on amiodarone at 0.5 mg/m. IV 0.9 normal saline at a rate of 20 ML per hour. He is up in the chair, denies any distress, no chest pain, mildly short of breath at times especially with exertion. His incisional pain on his abdomen is reasonably controlled. He is compliant with his incentive spirometry, he is able to achieve 750 on it today. Lung sounds are positive for diminished breath sounds with some limited crackles at the bases. Oxygenation is stable, currently is on 1/2 L per nasal cannula, his pulse ox is 93%, he is afebrile. Bowel sounds are active, there is small amount of thin brownish drainage from the WARD drain in his right abdomen, abdomen is soft, patient did have a loose bowel movement last night, today's labs were reviewed, leukocytosis has completely resolved, diabetes he is 7.6, hemoglobin is 7.6. Serum sodium is 133, potassium is 4.3, B1 is 27, creatinine is 1.04. Patient is tolerating clear liquid diet, no nausea, no vomiting. Remains stable, doing well, gallbladder fluid cultures are still pending. Patient is covered with IV Zosyn. The patient is seen again today 05/28/2018 in follow-up on the selective care unit. He is awake and alert in no acute distress. He is resting quite comfortably in bed. He is maintaining good O2 saturations in the 90s on room air. Working well with the incentive spirometer. He's been afebrile. He remains in atrial fibrillation, rate is better controlled. Abdomen is soft. WARD drain in place. White count 6.0. Hemoglobin 7.8. Creatinine 1.17. He remains on IV Zosyn. He has been restarted on warfarin. INR 1.2. Objective - Vital Signs Vital signs: Vital Signs Temp 97.8 F 05/28/18 04:00 Pulse 78 05/28/18 04:00 Resp 18 05/28/18 04:00 BP 95/58 05/28/18 04:00 Pulse Ox 94 L 05/28/18 04:00 Intake & Output 09/05/28/18 05/28/18 18:59 06:59 18:59 Intake Total 500 50 Output Total 225 85 Balance 275 -35 Weight 124.5 kg 124.5 kg Intake: IV 150 50 Piperacillin-Tazobactam 3 50 50 .375 gm In Dextrose/Water 1 50ml.bag @ 12.5 mls/hr IVPB Q8HR [facility] Rx#: [id number] Sodium Chloride 0.9% 1, 100 000 ml @ 100 mls/hr IV . Q10H [facility] Rx#:[id number] Oral 350 Output: Drainage 50 85 Right Lower Abdomen 50 85 Urine 175 Other: Voiding Method Indwelling Catheter # Voids 4 # Bowel Movements 5 - Exam GENERAL EXAM: Alert, active, comfortable in no apparent distress. HEAD: Normocephalic. EYES: Normal reaction of pupils, equal size. NOSE: Clear with pink turbinates. THROAT: No erythema or exudates. NECK: No masses, no JVD. CHEST: No chest wall deformity. LUNGS: Equal air entry with no crackles, wheeze, rhonchi or dullness. CVS: S1 and S2 normal with no audible murmur, irregular rhythm. ABDOMEN: Soft, nontender, incisions clean dry and intact. WARD drain in place. Bowel sounds present. SPINE: No scoliosis or deformity SKIN: No rashes CENTRAL NERVOUS SYSTEM: No focal deficits, tone is normal in all 4 extremities. EXTREMITIES: There is no peripheral edema. No clubbing, no cyanosis. Peripheral pulses are intact. - Labs CBC & Chem 7: 05/28/18 06:08 05/28/18 06:08 Labs: Abnormal Lab Results - Last 24 Hours (Table) 05/28/18 05/28/18 05/28/18 Range/Units 06:08 06:08 06:08 RBC 2.70 L (4.30-5.90) m/uL Hgb 7.8 L (13.0-17.5) gm/dL Hct 26.1 L (39.0-53.0) % MCHC 30.0 L (31.0-37.0) g/dL RDW 15.8 H (11.5-15.5) % Lymphocytes # 0.6 L (1.0-4.8) k/uL INR 1.2 H (<1.2) Sodium 134 L (137-145) mmol/L BUN 27 H (9-20) mg/dL Glucose 100 H (74-99) mg/dL Calcium 7.5 L (8.4-10.2) mg/dL Phosphorus 2.4 L (2.5-4.5) mg/dL Total Protein 4.9 L (6.3-8.2) g/dL Albumin 2.2 L (3.5-5.0) g/dL Microbiology - Last 24 Hours (Table) 05/25/18 14:30 Anaerobic Culture - Preliminary Gallbladder Fluid 05/25/18 14:30 Gram Stain - Preliminary Aspirate Body Fluid Culture - Preliminary Assessment and Plan Assessment: #1. Acute abdominal pain secondary to acute gangrenous cholecystitis, status post laparoscopic cholecystectomy, postop day 2 #2. Hypotension related to hypovolemia, possible sepsis, improved with fluid boluses, patient required some vasopressor support. Recovered #3. Leukocytosis related to the above, recovered #4. Recent history of thoracic aortic repair at [facility] #5. A. fib RVR versus questionable run of V. tach in the postoperative period, currently in A. fib with rate controlled #6. Chronic A. fib on Coumadin #7. Hypertension, hyperlipidemia, previous episode of myocardial infarction #8. Permanent pacemaker #9. Sleep apnea on CPAP #10. GERD/reflux Plan: The patient was seen and evaluated by Dr. Nguyen. He is currently stable from the pulmonary and critical care standpoint. His rate is controlled. Warfarin resumed. He is encouraged regarding the increased use the incentive spirometer and cough and deep breathing exercises. To be up with assistance today. The plan is to remove the WARD drain today as well. We'll continue to follow. I, the cosigning physician, performed a history & physical examination of the patient. Lungs sounds are clear. Maintaining good O2 saturations in the 90s on room air. I discussed the assessment and plan of care with my nurse practitioner, Marisol Wasserman. I attest to the above note as dictated by her.
[2018-05-28] MEDS: ONDANSETRON 4 MG/2 ML VIAL IVP PRN (12:15)
--- NOTE | 2018-05-28 12:52 | XR ---
EXAMINATION TYPE: XR chest 1V portable DATE OF EXAM: 05/28/2018 COMPARISON: Prior chest x-ray 05/27/2018 HISTORY: Shortness of breath with exertion TECHNIQUE: Single frontal view of the chest is obtained. FINDINGS: Thoracic aorta is aneurysmal. Patient is post median sternotomy and the heart is enlarged. Lung volumes are low. There is no evident pneumonia or axis. Patchy basilar density is noted. Lumina ry vascularity and karen not significantly changed. There are overlying cardiac leads. Pacemaker is st able with leads in the right atrium and ventricle. Mediastinal widening appears stable accounting for differences in technique. Interstitial changes again noted within the lungs. IMPRESSION: Cardiomegaly. Suspect basilar atelectasis. Difficult to exclude small effusion, pulmonar y venous hypertension and interstitial edema. Follow-up suggested.
--- NOTE | 2018-05-28 17:39 | PN ---
PROGRESS NOTE Patient is seen today for the first time and evaluated. He has been followed by Dr. Infante and underwent surgery for gangrenous gallbladder. HISTORY: This is a 78-year-old gentleman who had ischemic heart disease and myocardial infarction with previous stent placement, history of atrial fibrillation and attempted ablation x3. The patient also had chronic atrial fibrillation and he had descending aortic dissection. He spent 45 days in [facility] after repair of his aortic dissection. The patient subsequently came home 2 days later. He had right-sided abdominal pain and presented for admission to the hospital on 05/24/2018 with the right- sided severe diffuse pain. Subsequently he was evaluated laparoscopically with no abnormalities. Patient still had abdominal pain and bloating sensation with tenderness in the right upper quadrant and the lower quadrant. The ultrasound showed only sludge in the gallbladder, and patient was already seen by the surgeon. Cardiology subsequently was consulted because of sustained ventricular tachycardia in the range of 140 beats per minute. At that time he was seen by Dr. Jordan of Cardiology, and he evaluated the patient as well. His impression was that the patient has sustained ventricular tachycardia and atrial fibrillation and right bundle branch block by EKG. He had also acute abdomen and he had coronary arteriosclerosis with the history of previous myocardial infarction. He had chronic atrial fibrillation and history of aortic dissection in the descending aorta that has been repaired. On that admission he had amiodarone IV and magnesium as well, and subsequently the patient underwent the surgical treatment. He was seen initially by Dr. Ambrosio Cortes he did the initial surgical consultation. His impression at that time was acute cholecystitis. He discussed it with the family and laparoscopic cholecystectomy with possible open was discussed and IV antibiotic. Subsequently the gallbladder was sent to Pathology. It was found that he had transmural gangrenous cholecystitis superimposed on chronic cholecystitis with cholelithiasis. The surgeon was Dr. Ambrosio Cortes. Also initially pulmonary consultation was done by Dr. Darrell Nguyen on 05/26 with the impression of acute abdominal pain secondary to acute gangrenous cholecystitis, status post laparoscopic cholecystectomy, day 1. That was after he had the surgery, postoperative, and he had hypotension secondary to hypovolemia, possible sepsis, improved with fluid bolus and required some vasopressor for support and he is off the Levophed. He had leukocytosis and recent history of thoracic surgery repair of the dissection of the descending aorta. He has atrial fibrillation with rapid ventricular response and he was on started on amiodarone. He has chronic atrial fibrillation, on Coumadin, which was held for the surgery. He has history of hypertension, hyperlipidemia, and he has a past history of myocardial infarction. He had left infraclavicular pacemaker, obstructive sleep apnea, and GERD with reflux. On visit today by Dr. Nguyen, 05/28/2018, there is no change in his underlying impression; same as it was on the initial consultation. However, the nurse practitioner Marisol Wasserman did the dictation for that. The surgeon Dr. Cortes, covering Dr. Owens, had the impression that he took the WARD drain with the serosanguineous output and he continued with ambulation to the bathroom. His final impression to remove the WARD drain, which is done, and continue the medical management. Currently laboratory-dennis, on today 05/28/2018, on my first day seeing the patient, as the patient was seen yesterday by Dr. Infante, his white count is 6, hemoglobin 7.8, hematocrit 26.1, platelet count 152 with gradual recovery. His chemistry showed sodium 134, potassium 3.9, chloride 105, carbon dioxide 25. His BUN is 27 and creatinine 1.17 with the estimated glomerular filtration rate for non- 59. His sugar with the POC glucose was fairly well controlled. The calcium is still low at 7.5 started to eat and the phosphorus was 2.4. His total protein is 4.9 and albumin 2.2. That is from the prolonged n.p.o. and recovery and prior hospitalization in [facility]. His urine on admission on 05/24/2018 was essentially negative. Patient was on Coumadin and the question now is whether to start the Coumadin or not postoperatively for the atrial fibrillation. Currently patient is on allopurinol for gout. He is on atorvastatin and Klonopin, docusate and doxazosin for the benign prostatic hypertrophy. He is on metoprolol succinate and nitroglycerin and also Zosyn IV piggyback which started on 05/25/2018. Today is 3 days. He continued to have the warfarin at 7.5 mg p.o. at 1800 hours. His PT and INR have been done. His last INR was 1.2. Apparently they do it daily, and we will see with the antibiotic, still in the subtherapeutic level. On examination, the patient is conscious, alert, oriented. His is at bedside. His vital signs indicate temperature 97.4, pulse 83, respiratory rate 18, blood pressure 100/67, pulse ox 92. No other abnormalities. HEENT: The head was normocephalic and atraumatic. Oropharynx was negative. Neck was supple. Chest was clear to auscultation percussion. HEART: PMI in the fifth outside midclavicular line with cardiomegaly and the history of midline thoracotomy with repair of his dissecting descending aorta that was done in [facility]. The pacemaker is left infraclavicular. Abdomen is obese. Positive bowel sounds. He has a scar from previous laparoscopic cholecystectomy. However, he had bowel sounds. He went to the bathroom several times and he goes to ambulate. EXTREMITIES: No edema and positive pulses. ASSESSMENT: 1. Acute event with gangrenous cholecystitis and cholelithiasis, status post laparoscopic cholecystectomy. 2. Status post dissecting distending aortic aneurysm treated in [facility] and subsequently admitted to [facility]. 3. Atrial fibrillation. 4. Previous myocardial infarction. 5. He had stenting in the past. He is currently on Coumadin. We discussed that with the patient and the possibility of discharge home if the surgeon is agreeable with that within the next 24 to 48 hours. The patient is in stable general condition. We will obtain some laboratory tomorrow and will be looking if any other problems arise. NOTE: He had a loose bowel movement. We will obtain C difficile to further address any yogurt or probiotic. Dr. Vo covering during the temporary absence of Dr. Infante. MMODL / IJN: [id number] /
[2018-05-28] MEDS: WARFARIN 7.5 MG TAB PO SCH (18:22)
[2018-05-28] MEDS: clonazePAM 1 MG TAB PO SCH (20:38)
[2018-05-28] MEDS: DOXAZOSIN 2 MG TAB PO SCH (20:38)
[2018-05-28] MEDS: ALLOPURINOL 300 MG TAB PO SCH (20:38)
[2018-05-28] MEDS: ATORVASTATIN 40 MG TAB PO SCH (20:38)
[2018-05-29] MEDS: MAGNESIUM OXIDE 400 MG TAB PO SCH ×2 (06:26→17:11)
[2018-05-29 06:56] LABS: Reticulocyte % 1.4 % (0.5-2.0)
[2018-05-29 06:57] LABS: Basophils % (A) 0 %; Eosinophils # (A) 0.3 k/uL (0-0.7); Eosinophils % (A) 7 %; HCT 27.4 % (39.0-53.0); HGB 8.2 gm/dL (13.0-17.5); Hypochromasia Marked; Lymphocytes # (A) 0.7 k/uL (1.0-4.8); Lymphocytes % (A) 15 %; MCV 96.4 fL (80.0-100.0); Mean Platelet Volume 7.4; Monocytes # (A) 0.4 k/uL (0-1.0); Monocytes % (A) 8 %; Neutrophils # (A) 3.2 k/uL (1.3-7.7); Neutrophils % (A) 68 %; Platelet Count 167 k/uL (150-450); Poikilocytosis Slight; RBC 2.84 m/uL (4.30-5.90); RDW 15.9 % (11.5-15.5); WBC 4.8 k/uL (3.8-10.6)
[2018-05-29 06:59] LABS: INR 1.2 (<1.2); Prothrombin Time 11.7 sec (9.0-12.0)
[2018-05-29 07:08] LABS: Albumin 2.4 g/dL (3.5-5.0); Calcium 7.9 mg/dL (8.4-10.2); Phosphorus 3.1 mg/dL (2.5-4.5); Potassium 3.8 mmol/L (3.5-5.1); Total Bilirubin 0.5 mg/dL (0.2-1.3); Total Protein 5.2 g/dL (6.3-8.2); Uric Acid 4.2 mg/dL (3.5-8.5)
[2018-05-29] MEDS: PIPERACILLIN-TAZOBACTAM 3.375 GM in DEXTROSE/WATER 1 50ML.BAG IVPB SCH ×2 (08:20→15:29)
[2018-05-29] MEDS: ASPIRIN 81 MG PO SCH (10:13)
[2018-05-29] MEDS: METOPROLOL SUCCINATE (ER) 25 MG TAB.ER.24H PO SCH (10:13)
[2018-05-29] MEDS: PANTOPRAZOLE 40 MG/10 ML VIAL IVP SCH (10:14)
--- NOTE | 2018-05-29 11:00 | P.PN ---
Subjective Progress Note Date: 05/29/18 Principal diagnosis: Acute abdominal pain, acute gangrenous cholecystitis, septic shock This is 78-year-old white male patient of Dr. Infante, who presented to the emergency department on 05/24/2018 with acute abdominal pain, nausea, vomiting. Patient had a recent repair of his thoracic aorta at the [facility], [place] angios of thoracic and abdominal aorta was negative for any evidence of dissection. Ultrasound of the abdomen sludge containing thick-walled gallbladder, and mild hepatomegaly. Initial blood work showed WBC of 7.1, hemoglobin is 9.0, platelet count is 146, INR is 1.2, sodium is 134, the rest of the electrolytes were within normal limits, lactic acid was 1.4, troponins were negative, albumin was 2.8, LFTs were unremarkable, amylase and lipase were within normal limits. Urinalysis was positive for just trace leuks, and rare bacteria. Surgical consultation was placed, the patient was recommended to undergo laparoscopic cholecystectomy, and today were seen patient in the intensive care unit and it is postoperative day 1. Patient is awake, and alert , his pain is reasonably controlled, only having discomfort with moving, and occasionally with coughing. Pulse ox on 4 L per nasal cannula was 96%, he is afebrile, he is in atrial fibrillation, and patient is chronic A. fib on chronic anticoagulation with Coumadin. In the postoperative period there was questionable run of V. tach, patient was placed on amiodarone drip, which is currently infusing at a rate of 0.5 mg per min. maintenance IV fluids is 0.9 normal saline at 100 ML per hour. Patient had received 500 mL fluid bolus for hypotension in the postoperative period, levo fed is off. He is not tachycardic , heart rate is controlled, 60 and 70 BPM. He is producing urine in the order of 30-35 ML per hour. Lung sounds are clear, no rhonchi, no wheezes. He is pulling 1200 on the incentive spirometry today. He remains on Zosyn, gallbladder fluid Gram stain and culture is pending. No fever, no chills. He is nothing by mouth except for ice chips. Past medical history is positive for A. fib and patient has a permanent pacemaker, hypertension, hyperlipidemia, previous myocardial infarction, Paget's disease, thoracic aortic aneurysm as mentioned above, BPH. On 05/27/2018 patient seen again in follow-up in the intensive care unit. He is awake and alert, he is off vasopressor support, no further episodes of arrhythmia, remains in A. fib with a controlled rate, he remains on amiodarone at 0.5 mg/m. IV 0.9 normal saline at a rate of 20 ML per hour. He is up in the chair, denies any distress, no chest pain, mildly short of breath at times especially with exertion. His incisional pain on his abdomen is reasonably controlled. He is compliant with his incentive spirometry, he is able to achieve 750 on it today. Lung sounds are positive for diminished breath sounds with some limited crackles at the bases. Oxygenation is stable, currently is on 1/2 L per nasal cannula, his pulse ox is 93%, he is afebrile. Bowel sounds are active, there is small amount of thin brownish drainage from the WARD drain in his right abdomen, abdomen is soft, patient did have a loose bowel movement last night, today's labs were reviewed, leukocytosis has completely resolved, diabetes he is 7.6, hemoglobin is 7.6. Serum sodium is 133, potassium is 4.3, B1 is 27, creatinine is 1.04. Patient is tolerating clear liquid diet, no nausea, no vomiting. Remains stable, doing well, gallbladder fluid cultures are still pending. Patient is covered with IV Zosyn. The patient is seen again today 05/28/2018 in follow-up on the selective care unit. He is awake and alert in no acute distress. He is resting quite comfortably in bed. He is maintaining good O2 saturations in the 90s on room air. Working well with the incentive spirometer. He's been afebrile. He remains in atrial fibrillation, rate is better controlled. Abdomen is soft. WARD drain in place. White count 6.0. Hemoglobin 7.8. Creatinine 1.17. He remains on IV Zosyn. He has been restarted on warfarin. INR 1.2. The patient is seen again today 05/29/2018 in follow-up on the selective care unit. He is awake and alert in no acute distress. He denies any shortness of breath, cough or congestion. Maintaining O2 saturations in the 90s on room air. He is afebrile. He remains on Zosyn. White count 4.8. Hemoglobin 8.2. Creatinine 1.20. INR 1.4. His warfarin was resumed. Objective - Vital Signs Vital signs: Vital Signs Temp 97.4 F L 05/29/18 00:00 Pulse 86 05/29/18 08:00 Resp 18 05/29/18 08:00 BP 111/72 05/29/18 08:00 Pulse Ox 95 05/29/18 04:00 Intake & Output 05/28/18 05/29/18 05/29/18 18:59 06:59 18:59 Intake Total 15 Output Total 70 1 Balance -70 14 Weight 122.7 kg Intake: IV 15 .9 15 Output: Drainage 70 Right Lower Abdomen 70 Urine/Stool Mix 1 Other: Voiding Method Toilet Toilet # Voids 2 1 - Exam GENERAL EXAM: Alert, active, comfortable in no apparent distress. HEAD: Normocephalic. EYES: Normal reaction of pupils, equal size. NOSE: Clear with pink turbinates. THROAT: No erythema or exudates. NECK: No masses, no JVD. CHEST: No chest wall deformity. LUNGS: Equal air entry with no crackles, wheeze, rhonchi or dullness. CVS: S1 and S2 normal with no audible murmur, irregular rhythm. ABDOMEN: Soft, nontender, incisions clean dry and intact. Bowel sounds present. SPINE: No scoliosis or deformity SKIN: No rashes CENTRAL NERVOUS SYSTEM: No focal deficits, tone is normal in all 4 extremities. EXTREMITIES: There is no peripheral edema. No clubbing, no cyanosis. Peripheral pulses are intact. - Labs CBC & Chem 7: 05/29/18 06:21 05/29/18 06:21 Labs: Abnormal Lab Results - Last 24 Hours (Table) 05/29/18 05/29/18 05/29/18 Range/Units 06:21 06:21 06:21 RBC 2.84 L (4.30-5.90) m/uL Hgb 8.2 L (13.0-17.5) gm/dL Hct 27.4 L (39.0-53.0) % MCHC 30.0 L (31.0-37.0) g/dL RDW 15.9 H (11.5-15.5) % Lymphocytes # 0.7 L (1.0-4.8) k/uL INR 1.2 H (<1.2) Calcium 7.9 L (8.4-10.2) mg/dL AST 15 L (17-59) U/L Total Protein 5.2 L (6.3-8.2) g/dL Albumin 2.4 L (3.5-5.0) g/dL Microbiology - Last 24 Hours (Table) 05/25/18 14:30 Gram Stain - Preliminary Aspirate Body Fluid Culture - Preliminary Assessment and Plan Assessment: #1. Acute abdominal pain secondary to acute gangrenous cholecystitis, status post laparoscopic cholecystectomy. #2. Hypotension related to hypovolemia, possible sepsis, improved with fluid boluses, patient required some vasopressor support. Recovered #3. Leukocytosis related to the above, recovered #4. Recent history of thoracic aortic repair at [facility] #5. A. fib RVR versus questionable run of V. tach in the postoperative period, currently in A. fib with rate controlled #6. Chronic A. fib on Coumadin #7. Hypertension, hyperlipidemia, previous episode of myocardial infarction #8. Permanent pacemaker #9. Sleep apnea on CPAP #10. GERD/reflux Plan: The patient was seen and evaluated by Dr. Nguyen. He is currently stable from the pulmonary and critical care standpoint. He is encouraged regarding the increased use the incentive spirometer and cough and deep breathing exercises. To be up with assistance today. Home once cleared surgically. I, the cosigning physician, performed a history & physical examination of the patient. Lungs sounds are clear. Maintaining good O2 saturations in the 90s on room air. I discussed the assessment and plan of care with my nurse practitioner, Marisol Wasserman. I attest to the above note as dictated by her.
[2018-05-29 13:05] LABS: Iron Saturation 12.86 (15.00-50.00)
--- NOTE | 2018-05-29 13:18 | XR ---
EXAMINATION TYPE: XR chest 1V portable DATE OF EXAM: 05/29/2018 COMPARISON: 05/28/2018 HISTORY: Shortness of breath TECHNIQUE: Single frontal view of the chest is obtained. FINDINGS: The heart is enlarged and there is a cardiac device. Postsurgical changes are seen. There is be aneurysmal dilation of the thoracic aorta measuring approximately 4.8 cm. Basilar consolidation and small effusion noted. Arthropathy of the shoulders IMPRESSION: 1. Stable bilateral consolidation and small effusion. 2. Thoracic aortic aneurysmal dilation.
--- NOTE | 2018-05-29 14:46 | P.PN ---
Subjective Progress Note Date: 05/29/18 Patient seen and examined at bedside. Resting comfortably. No complaints. Tolerating diet. Having bowel function. Objective - Vital Signs Vital signs: Vital Signs Temp 97.8 F 05/29/18 11:35 Pulse 94 05/29/18 11:35 Resp 18 05/29/18 11:35 BP 115/64 05/29/18 11:35 Pulse Ox 95 05/29/18 04:00 Intake & Output 05/28/18 05/29/18 05/29/18 18:59 06:59 18:59 Intake Total 15 Output Total 70 1 Balance -70 14 Weight 122.7 kg Intake: IV 15 .9 15 Output: Drainage 70 Right Lower Abdomen 70 Urine/Stool Mix 1 Other: Voiding Method Toilet Toilet # Voids 2 1 - Constitutional General appearance: Present: cooperative, no acute distress - Respiratory Details: No difficulty with respiration - Gastrointestinal Gastrointestinal Comment(s): Soft, nontender, nondistended, no rebound, no guarding, incision sites are clean , dry and intact, WARD drain site with no surrounding erythema - Psychiatric Psychiatric: Present: appropriate affect - Labs CBC & Chem 7: 05/29/18 06:21 05/29/18 06:21 Labs: Abnormal Lab Results - Last 24 Hours (Table) 05/29/18 05/29/18 05/29/18 Range/Units 06:21 06:21 06:21 RBC 2.84 L (4.30-5.90) m/uL Hgb 8.2 L (13.0-17.5) gm/dL Hct 27.4 L (39.0-53.0) % MCHC 30.0 L (31.0-37.0) g/dL RDW 15.9 H (11.5-15.5) % Lymphocytes # 0.7 L (1.0-4.8) k/uL INR (<1.2) Calcium 7.9 L (8.4-10.2) mg/dL Iron 27 L (65-175) ug/dL TIBC 210 L (228-460) ug/dL Iron Saturation 12.86 L (15.00-50.00) AST 15 L (17-59) U/L Total Protein 5.2 L (6.3-8.2) g/dL Albumin 2.4 L (3.5-5.0) g/dL 05/29/18 Range/Units 06:21 RBC (4.30-5.90) m/uL Hgb (13.0-17.5) gm/dL Hct (39.0-53.0) % MCHC (31.0-37.0) g/dL RDW (11.5-15.5) % Lymphocytes # (1.0-4.8) k/uL INR 1.2 H (<1.2) Calcium (8.4-10.2) mg/dL Iron (65-175) ug/dL TIBC (228-460) ug/dL Iron Saturation (15.00-50.00) AST (17-59) U/L Total Protein (6.3-8.2) g/dL Albumin (3.5-5.0) g/dL Microbiology - Last 24 Hours (Table) 05/25/18 14:30 Gram Stain - Preliminary Aspirate Body Fluid Culture - Preliminary Assessment and Plan Plan: 78-year-old male status post laparoscopic cholecystectomy - Tolerating a soft diet, continue diet - Continue to increase activity - Continue medical management
[2018-05-29 15:12] VITALS: BP 123/72; PULSE 89; TEMP 98.1
[2018-05-29 16:05] LABS: Hemoglobin A1C 5.9 % (4.0-6.0)
[2018-05-29] MEDS: WARFARIN 7.5 MG TAB PO SCH (17:11)
--- NOTE | 2018-05-29 21:04 | DS ---
DISCHARGE SUMMARY DATE OF DISCHARGE: 05/29/2018. ATTENDING PHYSICIAN: Dr. Infante Age is 78-year-old, white male, . FINAL DIAGNOSES: 1. Acute gangrenous cholelithiasis and cholecystitis operated upon by the Dr. Cortes, the surgeon and was on the surgery on 05/26/18. The patient followed subsequently by Dr. Infante as well as Dr. Lauri Nguyen consulting and Dr. Doss, the surgeon, the partner of Dr. Cortes. Patient cleared by Dr. Darrell Nguyen, and cleared by Cardiology and cleared by the surgeon for discharge and to follow up with them. The patient has also the pathology report. 2. He had transmural gangrenous cholecystitis and superimposed on chronic cholecystitis with cholelithiasis and that is on the date of surgery 05/26/18. 3. Underlying atrial fibrillation, on anticoagulation. Seen in consultation by Dr. Jordan, cardiology. 4. 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 No evidence of new aortic dissection at the top of the aortic arch. 5. Cardiomegaly. 6. Benign prostatic hypertrophy. 7. Gouty arthropathy. 8. Anticoagulation is Coumadin. History and physical on admission by Dr. Infante indicating that 78-year-old white male presented to the emergency room with persistent nausea and vomiting and abdominal pain in the epigastric area. The patient has been discharged from [facility] after 45 days of admission, was 2 days prior to the admission to [facility]. In the [facility] found that he had ascending aortic aneurysm dissection, was diagnosed in our facility and transferred to [facility]. He underwent surgery. Postoperatively, he had abdominal pain. They did laparoscopic evaluation and noticed had no significant obstruction or blockage. Then, the suggestion was constipation. Subsequently, as he has no chest pain and then he was prior to that, eating well. He started to eat hard candy and he started to have a significant epigastric discomfort with nausea and vomiting. He has chronic atrial fibrillation with rapid ventricular response and he had the AICD. As subsequently, he was examined and found that he had severe pain that diagnosed with severe biliary with a gangrenous cholecystitis. He had his operation. He has recovered from this surgery with the also supportive element from the Pulmonary and Critical Care, Dr. Nguyen who at this time signed-off as he felt that the patient improved and can go home. His last impression of Dr. Nguyen, the Pulmonary and Critical, indicate diagnosis of: 1. Acute abdominal pain secondary to acute gangrenous cholecystitis status post laparoscopic cholecystectomy. 2. Hypotension related to the hypovolemia and sepsis, improved with the fluid resuscitation and boluses and need mild to moderate some of the vasopressor. He had the leukocytosis related to the above and he had history of recent thoracic aortic repair at [facility]. 3. He has history of atrial fib with RVR. 4. Also, he was seen by Dr. Doss the surgeon and his impression that this 78-year-old male post laparoscopic cholecystectomy. Tolerating soft diet. Continue the diet and could increase activity and continue medical management. The patient is ambulatory and he has laboratory today indicating that his white count is 4.8 with the anemia improved to 8.2 from 7.6 and 7.8. He still has anemia. His platelet count is normalized to 167, and his retic count 1.4. His PT and INR still nontherapeutic. However, we will be continuing the anticoagulant and adjust the dose as outpatient. His chemistry profile indicating sodium 137, potassium 3.8, chloride 106, and the patient had a BUN of 20 and creatinine 1.2 with estimated glomerular filtration rate for non- 57. His blood sugar stable 99. His hemoglobin A1c was 5.9. No evidence of diabetes. Uric acid was 4.2, and hemoglobin A1c 5.9. His calcium because of not eating probably will be improving as he is now eating a regular diet and his calcium 7.9 and phosphorus 3.1, magnesium 2. His iron is low and however, this is post surgery and will be continued improvement. He has also protein calorie deficiency and due to his event with the gallbladder and inability to eat and that will be improving with the regular diet and he has negative C difficile. As patient is stable general condition, his current examination on the discharge is temperature 98.1 and pulse rate 89, and he is in atrial fib and compensated and respiratory rate 18, blood pressure 123/72 with a mean 89 and he has room air and we have no abnormalities on the pulse ox. HEENT: The head was normocephalic, atraumatic. Pupils equal, reactive and able to eat with his natural teeth. Neck was supple. Chest was clear to auscultation and percussion. Heart was irregular with the atrial fibrillation with controlled ventricular response. The abdomen was soft, nontender, with the status post laparoscopic cholecystectomy and scar and the extremities no edema and he had several bowel movement, passing gases. Extremities: He had thrombotic stocking and he has no edema. Neurological is stable. Patient will be discharged home today in stable general condition to follow up with Dr. Cortes, Dr. Infante as well if he needs our assistance, Dr. Vo he will be able to contact us directly or through Dr. Infante's office. Date of service 05/29/2018. Admitted by Dr. Infante on 05/24/[address] Vo on 05/29/2018. Copy to Dr. Infante. MARJORIE / IJN: [id number] /
== END 2018-05-29 19:10 | disposition home health service (06) | DRG 417 ==
LOC: EC 03:59 → 5MS5E 06:40 → OBSVTOIN 14:55 → 6SEL 05-25 09:01 → 6ICU 05-25 15:10 → 6SEL 05-27 12:26
PROVIDERS: ADMIT Internal Medicine; ATTEND Internal Medicine
PROC: 0FT44ZZ Resection of Gallbladder, Percutaneous Endoscopic Approach (ICD-10-PCS; principal; 2018-05-25 12:00)
DX: K80.12 Calculus of gallbladder with acute and chronic cholecystitis without obstruction (principal); I50.33 Acute on chronic diastolic (congestive) heart failure; A41.9 Sepsis, unspecified organism; R65.21 Severe sepsis with septic shock; D62 Acute posthemorrhagic anemia; I47.2 Ventricular tachycardia; D69.6 Thrombocytopenia, unspecified; E11.9 Type 2 diabetes mellitus without complications; E78.5 Hyperlipidemia, unspecified; E86.1 Hypovolemia; G47.33 Obstructive sleep apnea (adult) (pediatric); I11.0 Hypertensive heart disease with heart failure; I25.10 Atherosclerotic heart disease of native coronary artery without angina pectoris; I25.2 Old myocardial infarction; I45.10 Unspecified right bundle-branch block; I48.2 Chronic atrial fibrillation; K21.9 Gastro-esophageal reflux disease without esophagitis; K40.90 Unilateral inguinal hernia, without obstruction or gangrene, not specified as recurrent; M10.9 Gout, unspecified; N40.0 Benign prostatic hyperplasia without lower urinary tract symptoms; Z79.01 Long term (current) use of anticoagulants; Z79.02 Long term (current) use of antithrombotics/antiplatelets; Z79.82 Long term (current) use of aspirin; Z79.899 Other long term (current) drug therapy; Z82.49 Family history of ischemic heart disease and other diseases of the circulatory system; Z83.3 Family history of diabetes mellitus; Z86.79 Personal history of other diseases of the circulatory system; Z95.810 Presence of automatic (implantable) cardiac defibrillator; Z96.641 Presence of right artificial hip joint; I71.2 Thoracic aortic aneurysm, without rupture
CPT/HCPCS: 36415; 71045; 71275; 74174; 76705; 80048; 80053; 80061; 81001; 82150; 82550; 82553; 83036; 83540; 83550; 83605; 83690; 83735; 84100; 84484; 84550; 85025; 85045; 85610; 85730; 86850; 86900; 86901; 87070; 87075; 87205; 87324; 88304; 93005; 96372; 96374; 96375; 96376; 99285

== ENCOUNTER 2019-04-30 17:12 | Emergency (ER) | payer MEDICARE ==
[2019-04-30] MEDS ORDERED: PROPARACAINE 0.5% OPHTH DROPS 15 ML BTL RIGHT EYE STA (18:00)
[2019-04-30] MEDS ORDERED: TOBRAMYCIN 0.3% OPHTH DROPS 5 ML BTL RIGHT EYE STA (18:20)
--- NOTE | 2019-04-30 18:22 | ED ---
Eye Problem HPI - General Chief complaint: Eye Problems Stated complaint: Bleeding eye Time Seen by Provider: 04/30/19 17:54 Source: patient, RN notes reviewed, old records reviewed Mode of arrival: ambulatory Limitations: no limitations - History of Present Illness Initial comments: This is an 79-year-old male the ER for evaluation. This patient presents today for evaluation regards to right eye pain. Patient states he was sawing some more and he felt the piece of wood glipizide 2 days ago. He's been running a little bit assumes pain in that eye. No change in vision some tearing. Patient noticed significant redness of the right eye today and coming to ER for evaluation. Denies any headache, no nausea vomiting. No other complaints MD chief complaint: eye pain, eye redness, other (Feels like there is looks like there is blood in his eye) -: days(s) Onset Description: gradual Location: right eye Place: home If Injury: direct trauma (Possible sawdust) Eye Symptoms: burning, blurry vision Severity: moderate Severity scale (1-10): 2 If Pain, Quality: aching Consistency: constant Associated Symptoms: none Treatments Prior to Arrival: irrigated eye - Related Data Home Medications Medication Instructions Recorded Confirmed Allopurinol 300 mg PO HS 04/05/14 04/30/19 Atorvastatin [Lipitor] 40 mg PO HS 04/05/14 04/30/19 Furosemide [Lasix] 20 mg PO MOWEFR 04/05/14 04/30/19 Magnesium Oxide 400 mg PO BID-W/MEALS 04/05/14 04/30/19 clonazePAM [KlonoPIN] 1 mg PO HS 04/05/14 04/30/19 Albuterol Sulfate [Proair Hfa] 1 - 2 puff INHALATION RT-Q6H PRN 04/08/18 04/30/19 Warfarin [Coumadin] 5 mg PO SUMOWEFRSA 04/08/18 04/30/19 Acetaminophen Tab [Tylenol] 650 mg PO Q6H PRN 05/24/18 04/30/19 Aspirin [Adult Low Dose Aspirin EC] 81 mg PO DAILY 05/24/18 04/30/19 Docusate [Colace] 100 mg PO BID PRN 05/24/18 04/30/19 Metoprolol Succinate [Toprol XL] 25 mg PO BID 05/24/18 04/30/19 Warfarin [Coumadin] 7.5 mg PO TUTH 05/24/18 04/30/19 Candesartan Cilexetil 8 mg PO DAILY 04/30/19 04/30/19 Omeprazole [PriLOSEC] 20 mg PO BID 04/30/19 04/30/19 Allergies Allergy/AdvReac Type Severity Reaction Status Date / Time heparin (porcine) Allergy Severe Anaphylaxis Verified 04/30/19 18:06 Review of Systems ROS Statement: Those systems with pertinent positive or pertinent negative responses have been documented in the HPI. ROS Other: All systems not noted in ROS Statement are negative. Past Medical History Past Medical History: Cancer, GERD/Reflux, Hyperlipidemia, Hypertension, Myocardial Infarction ([place]), Skin Disorder, Sleep Apnea/CPAP/BIPAP Additional Past Medical History / Comment(s): Skin CA 2014 removal, Last Myocardial Infarction Date:: History of Any Multi-Drug Resistant Organisms: MRSA Date of last positivie culture/infection: 2000 MDRO Source:: Right elbow Past Surgical History: Cardiac Ablation, Heart Catheterization With Stent Additional Past Surgical History / Comment(s): aortic dissection Past Anesthesia/Blood Transfusion Reactions: No Reported Reaction Date of Last Stent Placement:: 2005 Type of Cardiac Device: Permanent Pacemaker Device Placement Date:: march 2008 Past Psychological History: No Psychological Hx Reported Smoking Status: Never smoker Past Alcohol Use History: Daily Past Drug Use History: None Reported - Past Family History Father Family Medical History: Cancer, Diabetes Mellitus, Myocardial Infarction ([place]) General Exam - General Exam Comments Initial Comments: Patient has tonometer exam of right left eye both 19, visual grayson are normal, relief with packing, fluorescein does show mild abrasion Limitations: no limitations General appearance: alert, in no apparent distress Head exam: Present: atraumatic, normocephalic, normal inspection Eye exam: Present: normal appearance, PERRL, EOMI, other (Patient does have significant some conjunctival hemorrhage 35 percent). Absent: scleral icterus, conjunctival injection, periorbital swelling ENT exam: Present: normal exam, mucous membranes moist Neck exam: Present: normal inspection. Absent: tenderness, meningismus, lymphadenopathy Respiratory exam: Present: normal lung sounds bilaterally. Absent: respiratory distress, wheezes, rales, rhonchi, stridor Cardiovascular Exam: Present: regular rate, normal rhythm, normal heart sounds. Absent: systolic murmur, diastolic murmur, rubs, gallop, clicks GI/Abdominal exam: Present: soft, normal bowel sounds. Absent: distended, tenderness, guarding, rebound, rigid Extremities exam: Present: normal inspection, full ROM, normal capillary refill. Absent: tenderness, pedal edema, joint swelling, calf tenderness Back exam: Present: normal inspection Neurological exam: Present: alert, oriented X3, CN II-XII intact Psychiatric exam: Present: normal affect, normal mood Skin exam: Present: warm, dry, intact, normal color. Absent: rash Course Vital Signs 04/30/19 04/30/19 17:13 18:02 Pulse Rate 81 Respiratory 18 Rate Blood Pressure 198/123 169/113 O2 Sat by Pulse 97 Oximetry - Reevaluation(s) Reevaluation #1: 04/30/19 18:47 Records reviewed Medical Decision Making - Medical Decision Making 79-year-old male the ER with injury sinus, current symptoms. Tidal hemorrhage and corneal abrasion. Patient will be treated and discharged home Disposition Clinical Impression: Traumatic subconjunctival hemorrhage of right eye, Corneal abrasion, left Disposition: HOME SELF-CARE Condition: Good Instructions (If sedation given, give patient instructions): Subconjunctival Hemorrhage (ED), Corneal Abrasion (ED) Is patient prescribed a controlled substance at d/c from ED?: No Referrals: Mu Infante MD [Primary Care Provider] - 1-2 days
[2019-04-30 18:52] VITALS: BP 162/108; PULSE 84; RESP 17; TEMP 97.9
== END 2019-04-30 18:52 | disposition home or self-care (01) ==
LOC: EC 17:12
DX: H11.31 Conjunctival hemorrhage, right eye (principal); S05.02XA Injury of conjunctiva and corneal abrasion without foreign body, left eye, initial encounter; E78.5 Hyperlipidemia, unspecified; I10 Essential (primary) hypertension; I25.2 Old myocardial infarction; G47.30 Sleep apnea, unspecified; Z79.01 Long term (current) use of anticoagulants; Z79.82 Long term (current) use of aspirin; Z79.899 Other long term (current) drug therapy; Z88.8 Allergy status to other drugs, medicaments and biological substances; Z95.0 Presence of cardiac pacemaker; Z95.5 Presence of coronary angioplasty implant and graft; Z85.828 Personal history of other malignant neoplasm of skin; X58.XXXA Exposure to other specified factors, initial encounter
CPT/HCPCS: 99283

== ENCOUNTER 2019-05-22 16:30 | Emergency (ER) | payer MEDICARE ==
[2019-05-22] MEDS ORDERED: LIDOCAINE 1%-EPI 1:100,000 20 ML VIAL SQ STA (17:24)
[2019-05-22] MEDS ORDERED: DIPH,PERTUS(ACELL)TETVAC-LF 0.5 ML VIAL IM ONE (17:24)
--- NOTE | 2019-05-22 17:31 | ED ---
General Adult HPI - General Chief complaint: Wound/Laceration Stated complaint: Thumb laceration Time Seen by Provider: 05/22/19 16:57 Source: patient Mode of arrival: ambulatory Limitations: no limitations - History of Present Illness Initial comments: Dictation was produced using [employer] dictation software. please excuse any grammatical, word or spelling errors. Chief Complaint: 79 yo Male presents with right hand injury after getting it with a circular saw. History of Present Illness: An 79-year-old male he was working on his shed. He is cutting some plywood with a circular saw. He reached out to catch the wood and accidentally cut his lateral hand with a circular saw. CC incident happened approximately 2 hours prior to arrival. Patient denies any dysfunction of his thumb or hand. Patient is on Coumadin for atrial fibrillation. He had his INR last checked 2 weeks ago followed be 2.8. The ROS documented in this emergency department record has been reviewed and confirmed by me. Those systems with pertinent positive or negative responses have been documented in the HPI. All other systems are other negative and/or noncontributory. PHYSICAL EXAM: General Impression: Alert and oriented x3, not in acute distress HEENT: Normocephalic atraumatic, extra-ocular movements intact, pupils equal and reactive to light bilaterally, mucous membranes moist. Cardiovascular: Heart regular rate and rhythm, S1&S2 audible, no murmurs, rubs or gallops Chest: Lungs clear to auscultation bilaterally, no rhonchi, no wheeze, no rales Abdomen: Bowel sounds present, abdomen soft, non-tender, non-distended, no organomegaly Musculoskeletal: Pulses present and equal in all extremities, no peripheral edema Motor: no focal deficits noted Neurological: CN II-XII grossly intact, no focal motor or sensory deficits noted Skin: Intact with no visualized rashes Psych: Normal affect and mood Right hand: Complex laceration measuring approximately 7 cm to the right lateral hand over the first metacarpal bone. Thumb has good abduction and adduction flexion and extension ED course: 79 y Old male presents with laceration from circular saw. Vital signs upon arrival are within acceptable limits. Rest of physical examination is unremarkable. She is tenderness only updated Patient INR is 4.0. Patient told to hold his Coumadin for tomorrow and the next day and follow-up with his PCP for repeat INR. X-ray obtained showing no foreign bodies or acute fractures. There is a laceration deformity. Wound irrigation and laceration repaired by physician phys assistant Marlen Roy. Please refer to her documentation. Tetanus was updated. Patient to follow-up with primary care physician for wound check. Patient to have sutures removed in 10-14 days. - Related Data Home Medications Medication Instructions Recorded Confirmed Allopurinol 300 mg PO HS 04/05/14 05/22/19 Atorvastatin [Lipitor] 40 mg PO HS 04/05/14 05/22/19 Furosemide [Lasix] 20 mg PO MOWEFR 04/05/14 05/22/19 Magnesium Oxide 400 mg PO BID-W/MEALS 04/05/14 05/22/19 clonazePAM [KlonoPIN] 1 mg PO HS 04/05/14 05/22/19 Albuterol Sulfate [Proair Hfa] 1 - 2 puff INHALATION RT-Q6H PRN 04/08/18 05/22/19 Warfarin [Coumadin] 5 mg PO SUMOWEFRSA 04/08/18 05/22/19 Acetaminophen Tab [Tylenol] 650 mg PO Q6H PRN 05/24/18 05/22/19 Aspirin [Adult Low Dose Aspirin EC] 81 mg PO DAILY 05/24/18 05/22/19 Docusate [Colace] 100 mg PO BID PRN 05/24/18 05/22/19 Metoprolol Succinate [Toprol XL] 25 mg PO BID 05/24/18 05/22/19 Warfarin [Coumadin] 7.5 mg PO TUTH 05/24/18 05/22/19 Candesartan Cilexetil 8 mg PO DAILY 04/30/19 05/22/19 Omeprazole [PriLOSEC] 20 mg PO BID 04/30/19 05/22/19 Allergies Allergy/AdvReac Type Severity Reaction Status Date / Time heparin (porcine) Allergy Severe Anaphylaxis Verified 05/22/19 17:19 Review of Systems ROS Statement: Those systems with pertinent positive or pertinent negative responses have been documented in the HPI. ROS Other: All systems not noted in ROS Statement are negative. Past Medical History Past Medical History: Cancer, GERD/Reflux, Hyperlipidemia, Hypertension, Myocardial Infarction ([place]), Skin Disorder, Sleep Apnea/CPAP/BIPAP Additional Past Medical History / Comment(s): Skin CA 2014 removal, Last Myocardial Infarction Date:: History of Any Multi-Drug Resistant Organisms: MRSA Date of last positivie culture/infection: 2000 MDRO Source:: Right elbow Past Surgical History: Cardiac Ablation, Coronary Bypass/CABG, Heart Catheterization With Stent, Joint Replacement Additional Past Surgical History / Comment(s): right hip replacement, aortic dissection Past Anesthesia/Blood Transfusion Reactions: No Reported Reaction Date of Last Stent Placement:: 2005 Type of Cardiac Device: Permanent Pacemaker Device Placement Date:: march 2008 Past Psychological History: No Psychological Hx Reported Smoking Status: Never smoker Past Alcohol Use History: Daily Past Drug Use History: None Reported - Past Family History Father Family Medical History: Cancer, Diabetes Mellitus, Myocardial Infarction ([place]) General Exam Limitations: no limitations Course Vital Signs 05/22/19 16:42 Temperature 97.3 F L Pulse Rate 72 Respiratory 18 Rate Blood Pressure 149/84 O2 Sat by Pulse 96 Oximetry Medical Decision Making - Lab Data Lab Results 05/22/19 Range/Units 17:45 PT 38.3 H (9.0-12.0) sec INR 4.0 H (<1.2) APTT 39.9 H (22.0-30.0) sec Disposition Clinical Impression: Laceration Disposition: HOME SELF-CARE Condition: Good Instructions (If sedation given, give patient instructions): Laceration (ED) Additional Instructions: hold coumadin tomorrow, f/u with PCP for wound check and repeat INR in 2 days, suture removal in 10-14 days. Is patient prescribed a controlled substance at d/c from ED?: No Referrals: Mu Infante MD [Primary Care Provider] - 1-2 days Time of Disposition: 18:58
--- NOTE | 2019-05-22 17:41 | XR ---
EXAMINATION TYPE: XR hand complete RT DATE OF EXAM: 05/22/2019 COMPARISON: NONE HISTORY: Laceration TECHNIQUE: 3 views FINDINGS: Metacarpals appear intact. There is minor spurring at the first carpometacarpal joint. Ther e is minor spurring at the IP joints. I see no bony destructive process. There is soft tissue lacerat ion at the head of the first metacarpal. I see no evidence of bone loss. IMPRESSION: Laceration deformity. Mild osteoarthritis. No fracture seen. No evidence of a foreign bod y.
[2019-05-22 18:14] LABS: Partial Thromboplastin Time 39.9 sec (22.0-30.0); Prothrombin Time 38.3 sec (9.0-12.0)
[2019-05-22 19:52] VITALS: BP 158/96; PULSE 61; RESP 17; TEMP 98.9
--- NOTE | 2019-05-25 05:38 | CDI ---
Dear Marlen Roy: Please do addendum clarification on the laceration repair done on single layer closure as in physical exam complex laceration mentioned. Thank you, Johan Borrero, [employer]. If you have any questions, please contact Technical Sales Representatives at [phone]. [facility]
== END 2019-05-22 19:49 | disposition home or self-care (01) ==
LOC: EC 16:30
DX: S61.011A Laceration without foreign body of right thumb without damage to nail, initial encounter (principal); I48.91 Unspecified atrial fibrillation; K21.9 Gastro-esophageal reflux disease without esophagitis; E78.5 Hyperlipidemia, unspecified; I10 Essential (primary) hypertension; I25.2 Old myocardial infarction; G47.30 Sleep apnea, unspecified; Z88.8 Allergy status to other drugs, medicaments and biological substances; Z79.01 Long term (current) use of anticoagulants; Z79.82 Long term (current) use of aspirin; Z79.899 Other long term (current) drug therapy; Z85.828 Personal history of other malignant neoplasm of skin; Z98.890 Other specified postprocedural states; Z86.14 Personal history of Methicillin resistant Staphylococcus aureus infection; Z95.1 Presence of aortocoronary bypass graft; Z95.5 Presence of coronary angioplasty implant and graft; Z99.89 Dependence on other enabling machines and devices; Z23 Encounter for immunization; W31.2XXA Contact with powered woodworking and forming machines, initial encounter; Y93.89 Activity, other specified
CPT/HCPCS: 12002; 36415; 85610; 85730; 90471; 90715; 99283

== ENCOUNTER → 2020-06-24 | Outpatient (CLI) | payer MEDICARE ==
--- NOTE | 2020-06-27 10:57 | CT ---
EXAMINATION TYPE: CT lumbar spine wo con DATE OF EXAM: 06/24/2020 6:39 PM COMPARISON: CTA chest abdomen pelvis HISTORY: Low back pain. CT DLP: 2341.9 mGycm Automated exposure control for dose reduction was used. Unenhanced CT of the lumbar spine was performed. Bone and soft tissue window settings are submitted as well as coronal and sagittal reconstructions. There are bilateral posterior fixation rods and transpedicular screws at L4-L5 with interbody spacer device. No evidence of hardware fracture or loosening. There is redemonstrated heterogenous appearanc e of the bone marrow versus 2018 CTA comparison. The visualized right iliac bone is also significantl y heterogenous, sclerotic, and asymmetrically thickened. Vertebral body heights are normal. There is no evidence of fracture or dislocation. Normal alignment. There is disc space narrowing and vacuum di sc phenomenon at L2-L3. Mild disc space narrowing at L5-S1. Redemonstrated supraceliac descending thoracic inlet to upper abdominal aortic dissection, redemonstr ated from 2018. Otherwise no abdominal aortic aneurysm. There is heavily calcified atherosclerotic di sease. Right common iliac artery measures up to 17 mm, left common iliac artery measures up to 14 mm, , which is not increased versus 2018 CT comparison. T12-L1: No disc herniation protrusion or central stenosis. No evidence for foraminal encroachment. L1-L2: There is posterior disc bulging which indents the ventral aspect of the thecal sac. No canal s tenosis. No evidence for foraminal encroachment. L2-L3: There is circumferential bulging with posterior central disc osteophyte complex which indents the ventral thecal sac. Moderate canal stenosis. Mild right foraminal encroachment. L3-L4: Differential disc bulge with right subarticular disc protrusion with mass effect on the right lateral recess. Mild canal stenosis. Mild to moderate right foraminal encroachment. L4-L5: Evaluation of disc disease and canal stenosis is limited at this level due to surgical hardwar e streak artifact. Mild bilateral foraminal encroachment. L5-S1: Minimal posterior disc bulge. No canal stenosis. Moderate right and severe left foraminal encr oachment. IMPRESSION: 1. Postsurgical fixation changes at L4-L5 with no evidence of hardware failure. 2. Degenerative disc disease and facet arthropathy, with moderate canal stenosis at L2-L3. Canal jason nosis at L4-L5 is not evaluated due to streak artifact from surgical hardware. Varying degrees of epi ral foramina narrowing as above. 3. Redemonstrated heterogenous appearance of the bones, which may represent Paget's disease. 4. Descending thoracic aortic dissection appears similar to 05/24/2018 CT comparison.
== END | disposition home or self-care (01) ==
LOC: RADCTMAIN 18:22
PROVIDERS: ATTEND Physical Medicine & Rehabilitation
DX: M48.061 Spinal stenosis, lumbar region without neurogenic claudication (principal); M51.36 Other intervertebral disc degeneration, lumbar region; M47.816 Spondylosis without myelopathy or radiculopathy, lumbar region; R93.7 Abnormal findings on diagnostic imaging of other parts of musculoskeletal system; Z98.890 Other specified postprocedural states; I10 Essential (primary) hypertension
CPT/HCPCS: 72131

== ENCOUNTER → 2020-07-25 | Outpatient (CLI) | payer MEDICARE ==
[2020-07-25 23:46] LABS: INR 1.26 (0.90-1.11); Prothrombin Time 13.4 sec (9.9-11.9)
== END | disposition home or self-care (01) ==
LOC: LABWHC1 14:12
PROVIDERS: ATTEND Physical Medicine & Rehabilitation
DX: Z51.81 Encounter for therapeutic drug level monitoring (principal); Z79.01 Long term (current) use of anticoagulants
CPT/HCPCS: 36415; 85610

== ENCOUNTER → 2021-04-24 | Outpatient (CLI) | payer MEDICARE ==
--- NOTE | 2021-04-24 18:01 | CT ---
EXAMINATION TYPE: High-resolution CT chest DATE OF EXAM: 04/24/2021 COMPARISON: 05/24/2018 HISTORY: 81-year-old male J98.4, restrictive lung disease, SOB TECHNIQUE: High-resolution axial scanning of the chest utilizing 1 mm slice thickness and 1 cm gap pe r HRCT protocol. IV contrast was not administered. Both prone and supine imaging per HRCT protocol. CT DLP: 1267.8 mGycm Automated exposure control for dose reduction was used. FINDINGS: Median sternotomy wires are present with prosthetic aortic valve. Left anterior chest wall pacemaker generator with right atrial and right ventricular leads. Heart upper limits of normal in size without pericardial effusion. Postsurgical change of ascending aortic interposition graft with resolution of the previous perigraft fluid. 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 Caliber of the distal arch has increased now at 5.0 cm versus 4.6 cm, previously. Upper descending thoracic aorta 4.8 cm versus 4.3 cm, previously. Mid descending thoracic aorta 4.4 cm versus 3.9 cm, previously. Distal descending thoracic aorta 3.7 cm versus 3.6 cm, previously, not significantly changed. 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 Large caliber to the main right and left pulmonary arteries measuring up to 3.9 cm compatible with un derlying pulmonary arterial hypertension. No thoracic lymphadenopathy allowing for HRCT technique. Basilar subpleural reticulations, mild diffuse bronchial wall thickening, and mild bibasilar bronchio lectasis. No dominant groundglass densities or honeycombing. No thickening of the bronchovascular bundles, tree -in-bud opacities, centrilobular nodularity, or dominant cystic change. There is a trace right pleural effusion noted. Visualized upper abdomen shows no gross abnormality. Bones: Endplate spondylosis midthoracic spine. IMPRESSION: 1. MILD DIFFUSE BRONCHIAL WALL THICKENING ALONG WITH BIBASILAR RETICULATIONS AND MILD BRONCHIOLECTASI S. 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 THE PATTERN IS NONSPECIFIC AND COULD BE A SEQU NADINE OF PREVIOUS INFECTIONS/INFLAMMATION. NO HONEYCOMBING OR DOMINANT GROUNDGLASS. 2. PULMONARY ARTERIAL HYPERTENSION. 3. KNOWN CHRONIC AORTIC DISSECTION WITH PREVIOUS REPAIR OF THE ASCENDING AORTA. THE DESCENDING THORAC IC AORTA HAS ENLARGED IN THE INTERVAL CURRENTLY MEASURING UP TO 5.0 CM PROXIMALLY AND 4.6 CM DISTALLY (VERSUS 4.6 AND 4.3 CM, RESPECTIVELY, ON THE 2018 EXAM). APPROPRIATE VASCULAR SURGERY FOLLOW-UP/SURV [place] RECOMMENDED. 4. TRACE RIGHT PLEURAL EFFUSION.
== END | disposition home or self-care (01) ==
LOC: RADCTMAIN 15:10
PROVIDERS: ATTEND Internal Medicine
DX: J47.9 Bronchiectasis, uncomplicated (principal); I27.20 Pulmonary hypertension, unspecified
CPT/HCPCS: 71250